=== PATIENT | male | born 2000 | race Caucasian/White ===

== ENCOUNTER 2023-03-24 03:35 | Inpatient (IN) ==
[2023-03-24] MEDS ORDERED: LORazepam 1 MG/1 ML SYR ED Inj Use IV STA (04:28)
[2023-03-24] MEDS ORDERED: MULTI-VITAMIN INFUSION 10 ML, THIAMINE HCL 100 MG, FOLIC ACID 1 MG in SODIUM CHLORIDE 0... IV ONE (04:28)
[2023-03-24 04:42] LABS: Basophils # (auto) 0.04 K/uL (0.00-0.20); Basophils % (auto) 0.5 %; Eosinophils # (auto) 0.08 K/uL (0.00-0.50); Hematocrit (blood only) 46.2 % (42.0-52.0); Hemoglobin 15.8 g/dl (14.0-18.0); Immature Granulocytes # (auto) 0.04 K/uL (0.01-0.20); Immature Granulocytes % (auto) 0.5 %; Lymphocytes # (auto) 1.68 K/uL (1.20-3.40); Lymphocytes % (auto) 21.2 %; Mean Corpuscular Hemoglobin 29.3 pg (25.0-34.0); Mean Corpuscular Hgb Conc 34.2 g/dL (32.0-36.0); Mean Corpuscular Volume 85.7 fL (80.0-100.0); Mean Platelet Volume 10.2 fL (9.4-12.4); Monocytes # (auto) 0.66 K/uL (0.11-0.59); Monocytes % (auto) 8.3 %; Neutrophils # (auto) 5.43 K/uL (1.40-6.50); Neutrophils % (auto) 68.5 %; Platelet Count 237 K/uL (130-400); RDW Coefficient of Variation 12.8 % (11.5-14.5); RDW Standard Deviation 39.7 fL (36.4-46.3); Red Blood Count 5.39 M/uL (4.70-6.10); White Blood Count 7.93 K/ul (4.8-10.8)
[2023-03-24 04:55] LABS: Albumin Globulin Ratio 1.5 (0.9-2); Albumin Level 4.7 gm/dl (3.4-5.0); Bilirubin,Total 1.7 mg/dl (0.2-1.0); Calcium 9.3 mg/dl (8.6-10.3); Creatinine Clr Calc Pharmacy 138.3 ml/min; Est GFR (African American) 137.3 ml/min; Est GFR (Non-African American) 118.5 ml/min; Globulin 3.1 gm/dl (2.5-4.0); Potassium 2.9 mmol/L (3.5-5.1); Total Protein 7.8 gm/dl (6.0-8.3)
[2023-03-24 05:09] LABS: Acetaminophen < 3 ug/ml (10-30); Salicylate < 3.0 mg/dl (3.0-30)
[2023-03-24 05:10] LABS: Thyroid Stimulating Hormone 1.618 uIu/ml (0.300-4.500)
[2023-03-24] MEDS ORDERED: POTASSIUM CHLORIDE / WTR 10 MEQ/100 ML PLCT IV ONE (05:16)
--- NOTE | 2023-03-24 06:09 | Emergency Department Note ---
Impression & Plan Hypokalemia, Alcohol withdrawal, Acute paranoia Admit to the [facility] ED Provider Note NAME: ZACHARY BARNES AGE: 22 SEX: Male INFORMANT: Patient ED PROVIDER(S): Reyna Diaz DO CHIEF COMPLAINT: Racing heart and paranoia PLAN: Disposition: Admit to the [facility] MEDICAL DECISION MAKING: This is a 22-year-old male who presents to the emergency department with a racing heart and acute paranoia. Patient has not been showering over the past 5 days. He describes having very little food to eat over the past 3 days. He has been drinking water. The patient describes drinking alcohol on a daily basis over the past couple of weeks but very heavily over the past 5 to 7 days up until approximately 36 hours ago. Since that time, his racing heart, anxiety and paranoia have worsened. Laboratory studies revealed evidence of significant hypokalemia. The patient required IV potassium replacement. Because what looks to be alcohol withdrawal, the patient was given an IV banana bag. Patient was given a dose of IV Ativan for acute anxiety and paranoia. I discussed the case with the [facility] [place] Divisionist and they will evaluate for further inpatient care. Care/management discussed with: ED psychiatric cyanide case hardener; [facility] Triage Nursing notes: Reviewed and agree with them. 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 Patient describes increased feelings of paranoia and heart racing. Patient has not taken a shower for the past 5 days and has not had very little food eaten in the past 3 days. He initially stated that he was sleeping and woke from sleep after having a terrible nightmare. 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 Patient also describes drinking on a daily basis while at home over holiday break. He thought that he may be withdrawing from alcohol now and lifted up online. PAST MEDICAL HISTORY: None, SOCIAL HISTORY: Student at [employer], drinks alcohol regularly and smokes marijuana HOME MEDICATIONS: None ALLERGIES: None VITALS: See Below PHYSICAL EXAMINATION: HEENT: Head - normocephalic and atraumatic. Pupils are equal, round, and reactive to light. Extraocular eye muscles are intact, and sclera are anicteric. Nose - moist nasal mucosa without discharge. Mouth - moist buccal mucosa. Oropharynx is nonerythematous and there is no tonsillar exudate or edema noted. Neck: Supple; no cervical lymphadenopathy Heart: Tachycardic rate and regular rhythm there is a normal S1 and S2 with no murmurs, clicks, or gallops appreciated. Lungs: Clear to auscultation bilaterally with no wheezes, rales, or rhonchi. Abdomen: Soft, completely nontender, nondistended, with good bowel sounds. There are no palpable pulsatile masses or hepatosplenomegaly. There is no guarding, rigidity, or rebound noted. Extremities: No evidence of cyanosis, clubbing, or edema. There are easily palpable peripheral pulses. Skin: warm and dry with good turgor and no rashes. Psych: Patient appears extremely anxious and acutely paranoid Emergency department treatment: desk monitor; IV banana bag; IV Ativan; IV K rider Emergency department course: Patient was evaluated in room C4. A complete history and physical was performed. An IV lock was initiated and labs were drawn as above. An order was placed for continuous cardiac monitoring. The patient was in a sinus tachycardia at a rate of 126. A twelve-lead EKG was obtained as described above. Patient was given a dose of IV Ativan for his significant anxiety and paranoia. The patient was significantly hypokalemic and an IV K rider was initiated. Patient was evaluated by the ED psychiatric cyanide case hardener and continued to exhibit signs of significant anxiety and paranoia. It is believed he will require additional inpatient psychiatric care for this but because he is hypokalemic and suffering from alcohol withdrawal, he will be admitted medically first. Past Med/Surg History Medical History (Updated 03/25/23 @ 15:26 by Reyna Diaz DO) No significant past medical history Surgical History (Updated 03/24/23 @ 06:39 by Lisa Pozo DO) History of wisdom tooth extraction Family History (Updated 03/24/23 @ 06:39 by Lisa Pozo DO) Other Depression Social History (Updated 03/24/23 @ 06:45 by Lisa Pozo DO) Smoking Status: Current some day smoker Tobacco Type: E-cigarettes / Vaping Hx Alcohol Use: Yes Alcohol type: hard liquor Hx Substance Use: No Preferred Language: Maldivian Communication Ability: Effective Lockstitch Collar Setter Required: No Beliefs That Will Affect Care: None Current Living Situation: Alone Feels Safe at Home: Yes Gender Identity: Male Assistive Devices: None Allergies Allergies Allergy/AdvReac Type Severity Reaction Status Date / Time No Known Drug Allergies Allergy Mild Verified 03/24/23 06:45 Home Meds Home Medications Medication Instructions Recorded Confirmed No Known Home Medications 03/24/23 03/24/23 Results & Data (ED) Vital Signs Vital Signs - 24 hr 03/24/23 03:48 03/24/23 03:48 03/24/23 04:44 Temperature Temperature Source Pulse Rate 108 H 103 H Pulse Rate [Apical] 96 H Respiratory Rate 16 24 Blood Pressure 135/105 H Blood Pressure [Left Arm] 112/86 Blood Pressure Mean 115 Blood Pressure Mean [Left Arm] 94 Pulse Oximetry 99 98 Oxygen Delivery Method Room Air Room Air Sepsis Recent Fever Within 48 Hours No Sepsis New/Unexplained Change in Mental Status No Sepsis Action Taken by Nursing No Action Required 03/24/23 04:45 Temperature 37.1 C Temperature Source Oral Pulse Rate Pulse Rate [Apical] Respiratory Rate Blood Pressure Blood Pressure [Left Arm] Blood Pressure Mean Blood Pressure Mean [Left Arm] Pulse Oximetry Oxygen Delivery Method Sepsis Recent Fever Within 48 Hours Sepsis New/Unexplained Change in Mental Status Sepsis Action Taken by Nursing Laboratory Data 03/25/23 06:01 03/25/23 06:01 Lab Results 03/24/23 03/24/23 03/24/23 Range/Units 03:50 03:50 03:50 WBC 7.93 (4.8-10.8) K/ul RBC 5.39 (4.70-6.10) M/uL Hgb 15.8 (14.0-18.0) g/dl Hct 46.2 (42.0-52.0) % MCV 85.7 (80.0-100.0) fL MCH 29.3 (25.0-34.0) pg MCHC 34.2 (32.0-36.0) g/dL RDW Std Deviation 39.7 (36.4-46.3) fL RDW Coeff of Jet 12.8 (11.5-14.5) % Plt Count 237 (130-400) K/uL MPV 10.2 (9.4-12.4) fL Immature Gran % (Auto) 0.5 % Neut % (Auto) 68.5 % Lymph % (Auto) 21.2 % [place] % (Auto) 8.3 % Eos % (Auto) 1.0 % Baso % (Auto) 0.5 % Neut # (Auto) 5.43 (1.40-6.50) K/uL Lymph # (Auto) 1.68 (1.20-3.40) K/uL [place] # (Auto) 0.66 H (0.11-0.59) K/uL Eos # (Auto) 0.08 (0.00-0.50) K/uL Baso # (Auto) 0.04 (0.00-0.20) K/uL Immature Gran # (Auto) 0.04 (0.01-0.20) K/uL Sodium 135 L (136-145) mmol/L Potassium 2.9 L (3.5-5.1) mmol/L Chloride 98 (98-107) mmol/L Carbon Dioxide 22 (21-32) mmol/L Anion Gap 15 H (3-11) BUN 12 (6-23) mg/dl Creatinine 0.92 (0.6-1.4) mg/dl Est Cr Clr Drug Dosing 138.3 ml/min Est GFR ( Amer) 137.3 ml/min Est GFR (Non-Af Amer) 118.5 ml/min BUN/Creatinine Ratio 13.0 (10-20) Glucose 157 H (70-99(Fasting)) mg/dl Osmolality 286 (280-300) mOsm/kg Calcium 9.3 (8.6-10.3) mg/dl Phosphorus 3.0 Cancelled (2.5-4.9) mg/dl Magnesium 1.9 Cancelled (1.7-2.4) mg/dl Total Bilirubin 1.7 H (0.2-1.0) mg/dl AST 48 H (13-39) U/L ALT 28 (7-52) U/L Alkaline Phosphatase 87 (34-104) U/L Total Protein 7.8 (6.0-8.3) gm/dl Albumin 4.7 (3.4-5.0) gm/dl Globulin 3.1 (2.5-4.0) gm/dl Albumin/Globulin Ratio 1.5 (0.9-2) TSH 1.618 (0.300-4.500) uIu/ml Salicylates < 3.0 L (3.0-30) mg/dl Acetaminophen < 3 L (10-30) ug/ml Ethyl Alcohol mg/dL < 10.0 (<10.0) mg/dl Administered Medications Thiamine HCl 100 mg/ Syringe 10 mls @ 2 m[facility] Stop: 04/23/23 08:59 Last Admin: 03/24/23 09:10 Dose: 2 mls/min Documented By: CARA Folic Acid 1 mg/ Syringe 10 mls @ 5 mls[facility] Stop: 04/23/23 08:59 Last Admin: 03/24/23 09:10 Dose: 5 mls/min Documented By: CARA Lorazepam 1 mg/ Syringe 1 mls @ 2 mls/min IV UD PRN; Protocol PRN Reason: EtOH Withdrawal AWSS Score 6,7 Stop: 04/23/23 08:00 Last Admin: 03/24/23 22:48 Dose: 2 mls/min Documented By: TERI Lorazepam 2 mg/ Syringe 2 mls @ 2 mls/min IV UD PRN; Protocol PRN Reason: EtOH Withdrawal AWSS Score 8,9 Stop: 04/23/23 08:00 Last Admin: 03/24/23 13:19 Dose: 2 mls/min Documented By: VINH Discontinued Medications Chlordiazepoxide HCl (Chlordiazepoxide Hcl 25 Mg Cap) 50 mg PO Q6H [facility] Stop: 03/25/23 02:02 Last Admin: 03/25/23 01:39 Dose: Not Given Documented By: Admin: 03/24/23 21:39 Dose: 50 mg Documented By: Admin: 03/24/23 15:48 Dose: Not Given Documented By: Admin: 03/24/23 09:08 Dose: Not Given Documented By: CARA Multivitamins 10 ml/ Thiamine HCl 100 mg/ Folic Acid 1 mg/Sodium Chloride 1,011.2 mls @ 500 mls/hr IV .Q2H2M ONE Stop: 03/24/23 06:29 Last Infusion: 03/24/23 07:14 Dose: Infused Documented By: Admin: 03/24/23 05:03 Dose: 500 mls/hr Documented By: RENE Potassium Chloride (K Patrcik / Wtr) 10 meq in 100 mls @ 100 mls/hr IV ONE ONE Stop: 03/24/23 06:15 Last Infusion: 03/24/23 06:31 Dose: Infused Documented By: Admin: 03/24/23 05:29 Dose: 100 mls/hr Documented By: RENE Lactated Ringer's (Lr) 1,000 mls @ 125 mls/hr IV .Q8H THUY Stop: 03/25/23 00:00 Last Infusion: 03/25/23 01:33 Dose: Infused Documented By: Admin: 03/24/23 17:13 Dose: 125 mls/hr Documented By: OElder Infusion: 03/24/23 16:25 Dose: Infused Documented By: Admin: 03/24/23 08:25 Dose: 125 mls/hr Documented By: CARA Lorazepam 3 mg/ Syringe 3 mls @ 2 mls/min IV ONCE PRN; Protocol PRN Reason: EtOH Withdrawal AWSS Score 10+ Last Admin: 03/24/23 08:30 Dose: 2 mls/min Documented By: CARA Lorazepam (Lorazepam 1 Mg/1 Ml Syr Ed Inj Use) 1 mg IV ONE STA Stop: 03/24/23 04:29 Last Admin: 03/24/23 04:44 Dose: 1 mg Documented By: RENE Potassium Chloride (Potassium Chloride Crtab 20 Meq Tabcr) 40 meq PO Q2H THUY Stop: 03/24/23 09:06 Last Admin: 03/24/23 07:21 Dose: 40 meq Documented By: CARA Discharge Plan Visit Data Chief Complaint: Anxiety Stated Complaint: Panic Attack ED Provider: Reyna Diaz Discharge Problem: Hypokalemia, Alcohol withdrawal, Acute paranoia Patient Disposition: Admitted As Inpatient Discharge Instructions Interventions: ED Discharge Assessment Last Done: 03/24/23 07:41 Discharge Problem: Alcohol withdrawal Qualifiers: Complication of substance-induced condition: with delirium Qualified Code(s): F 10.931 - Alcohol use, unspecified with withdrawal delirium
[2023-03-24] MEDS ORDERED: Patient's ALLERGY Info needs ENTERED STA (06:27)
--- NOTE | 2023-03-24 06:52 | History & Physical Report ---
Date of Service March 24, 2023 Assessment & Plan (1) Alcohol withdrawal: Plan: Unable to fully quantify how much patient drinks. Concerning for developing DTs with confusion, altered sensorium. Banana bag administered in ER -Admit to PCU -Maintain seizure precautions, fall precautions -Awaiting urine tox screen -Serum osmolality ordered to calculate osmolar gap -Initiate Librium taper -IV Ativan PRN per AWSS protocol -Thiamine 100mg IV daily -Folate 1mg IV daily -LR 125mL/hr 2L -Psychiatry consultation appreciated (2) Hypokalemia: Plan: K=2.9. Likely multifactorial - poor oral intake, recent diarrhea -EKG ordered -Mg level ordered -Has been given 10mEq IV. Will order additional 80mEq PO -Repeat BMP at 12:00 (3) Anxiety: Plan: Patient reports a lot of anxiety and depression symptoms. Has never been diagnosed formally. -Appreciate Psychiatry assistance History of Present Illness Chief Complaint: confusion anxiety Primary Care Provider: [facility] Serafin is a 22yo male presenting with anxiety. Patient is a poor historian at present. He reports that he feels that he has undiagnosed depression and anxiety. He also drinks regularly - daily, admits to at least 3 per day. He has had increase in his alcohol intake over the last several weeks (unable to quantify amount) with very heavy drinking over the past 5-7 days. Also with increase in his anxiety and depression. He reports he has not been eating, showering, sleeping or taking care of himself for the last several days. He also reports that his thoughts are somewhat confused and disorganized. Last drink appx 48 hours ago. States he thinks he is having withdrawal symptoms from alcohol. He reports he has had symptoms of EtOH withdrawal in the past but is unable to clarify when or the severity of his symptoms. He feels like he is "tweaking out" Reports increased fatigue as well as some diarrhea 3 days ago which has since resolved. Is not sure if he has a drinking problem Has never seen Psychiatry before Has never been on any antidepressants or other psychiatric medications In the ER he was noted to be tachycardic and restless. He was given Ativan with some improvement. ER Course: Ativan 1mg IV MVI KCl 10mEq Allergies Allergy/AdvReac Type Severity Reaction Status Date / Time No Known Drug Allergies Allergy Mild Verified 03/24/23 06:45 Past Med/Surg History Medical History (Updated 03/24/23 @ 06:43 by Lisa Pozo DO) No significant past medical history Surgical History (Updated 03/24/23 @ 06:39 by Lisa Pozo DO) History of wisdom tooth extraction Family History (Updated 03/24/23 @ 06:39 by Lisa Pozo DO) Other Depression Social History (Updated 03/24/23 @ 06:45 by Lisa Pozo DO) Smoking Status: Never smoker Hx Alcohol Use: Yes Hx Substance Use: Yes Prescribed Medications: Marijuana Preferred Language: Zimbabwean Feels Safe at Home: Yes Gender Identity: Male Review of Systems Review of Systems: All systems reviewed & are unremarkable except as noted in HPI & below Physical Exam Physical Exam: General: patient restless, oriented to person and location Skin: warm, dry, intact, no rashes or lesions HEENT: NC/AT, PERRL, EOMI, anicteric sclera, conjunctiva without injection, external ear normal to inspection and nontender, nares patent, dry mucus membranes, dentition intact, no oropharyngeal lesions, neck supple, trachea midline, no LAD, no thyromegaly, no JVD Heart: +S1/S2, regular, no m/r/g Lungs: equal air entry bilaterally, no rales/rhonchi/wheezes Abd: +BS, soft, NT/ND, no masses/organomegaly/ascites Ext: warm, 2+ pulses in UE/LE bilaterally, no clubbing/cyanosis or edema Neuro: nonfocal, restless with mild tremor, grossly non-focal exam Results & Data Results & Data Vital Signs (Past 12 Hours) Vital Signs Temp Pulse Pulse Resp BP BP Pulse Ox 03/24/23 06:08 90 16 117/92 97 03/24/23 04:45 37.1 C 03/24/23 04:44 96 H 24 112/86 98 03/24/23 03:48 103 H 16 135/105 H 99 03/24/23 03:48 108 H O2 Del Method 03/24/23 06:08 Room Air 03/24/23 04:45 03/24/23 04:44 Room Air 03/24/23 03:48 Room Air 03/24/23 03:48 Laboratory Results Laboratory Results WBC 7.93 K/ul (4.8-10.8) 03/24/23 03:50 RBC 5.39 M/uL (4.70-6.10) 03/24/23 03:50 Hgb 15.8 g/dl (14.0-18.0) 03/24/23 03:50 Hct 46.2 % (42.0-52.0) 03/24/23 03:50 MCV 85.7 fL (80.0-100.0) 03/24/23 03:50 MCH 29.3 pg (25.0-34.0) 03/24/23 03:50 MCHC 34.2 g/dL (32.0-36.0) 03/24/23 03:50 RDW Std Deviation 39.7 fL (36.4-46.3) 03/24/23 03:50 RDW Coeff of Jet 12.8 % (11.5-14.5) 03/24/23 03:50 Plt Count 237 K/uL (130-400) 03/24/23 03:50 MPV 10.2 fL (9.4-12.4) 03/24/23 03:50 Immature Gran % (Auto) 0.5 % 03/24/23 03:50 Neut % (Auto) 68.5 % 03/24/23 03:50 Lymph % (Auto) 21.2 % 03/24/23 03:50 [place] % (Auto) 8.3 % 03/24/23 03:50 Eos % (Auto) 1.0 % 03/24/23 03:50 Baso % (Auto) 0.5 % 03/24/23 03:50 Neut # (Auto) 5.43 K/uL (1.40-6.50) 03/24/23 03:50 Lymph # (Auto) 1.68 K/uL (1.20-3.40) 03/24/23 03:50 [place] # (Auto) 0.66 K/uL (0.11-0.59) H 03/24/23 03:50 Eos # (Auto) 0.08 K/uL (0.00-0.50) 03/24/23 03:50 Baso # (Auto) 0.04 K/uL (0.00-0.20) 03/24/23 03:50 Immature Gran # (Auto) 0.04 K/uL (0.01-0.20) 03/24/23 03:50 Sodium 135 mmol/L (136-145) L 03/24/23 03:50 Potassium 2.9 mmol/L (3.5-5.1) L 03/24/23 03:50 Chloride 98 mmol/L (98-107) 03/24/23 03:50 Carbon Dioxide 22 mmol/L (21-32) 03/24/23 03:50 Anion Gap 15 (3-11) H 03/24/23 03:50 BUN 12 mg/dl (6-23) 03/24/23 03:50 Creatinine 0.92 mg/dl (0.6-1.4) 03/24/23 03:50 Est Cr Clr Drug Dosing 138.3 ml/min 03/24/23 03:50 Est GFR ( Amer) 137.3 ml/min 03/24/23 03:50 Est GFR (Non-Af Amer) 118.5 ml/min 03/24/23 03:50 BUN/Creatinine Ratio 13.0 (10-20) 03/24/23 03:50 Glucose 157 mg/dl (70-99(Fasting)) H 03/24/23 03:50 Calcium 9.3 mg/dl (8.6-10.3) 03/24/23 03:50 Total Bilirubin 1.7 mg/dl (0.2-1.0) H 03/24/23 03:50 AST 48 U/L (13-39) H 03/24/23 03:50 ALT 28 U/L (7-52) 03/24/23 03:50 Alkaline Phosphatase 87 U/L (34-104) 03/24/23 03:50 Total Protein 7.8 gm/dl (6.0-8.3) 03/24/23 03:50 Albumin 4.7 gm/dl (3.4-5.0) 03/24/23 03:50 Globulin 3.1 gm/dl (2.5-4.0) 03/24/23 03:50 Albumin/Globulin Ratio 1.5 (0.9-2) 03/24/23 03:50 TSH 1.618 uIu/ml (0.300-4.500) 03/24/23 03:50 Salicylates < 3.0 mg/dl (3.0-30) L 03/24/23 03:50 Acetaminophen < 3 ug/ml (10-30) L 03/24/23 03:50 Ethyl Alcohol mg/dL < 10.0 mg/dl (<10.0) 03/24/23 03:50 ECG Additional Comments: Ordered - not yet completed PG Care Time/CCT Total # of Minutes Spent Total Time Spent with Patient: Total time spent is greater than 50% in coordination of care (as documented) at patient's floor/unit and/or counseling patient: Coding Level of Care Code 88482 INT INP/OBS CARE 2/55MIN Diagnoses Alcohol withdrawal F10.931 Complication of substance-induced condition: with delirium Hypokalemia E87.6 Anxiety F41.9 (1) Alcohol withdrawal Complication of substance-induced condition: with delirium Qualified Code(s): F10.931 - Alcohol use, unspecified with withdrawal delirium
[2023-03-24] MEDS ORDERED: POTASSIUM CHLORIDE CRTAB 20 MEQ TABCR PO SCH (07:05)
[2023-03-24] MEDS ORDERED: Ativan IV Alcohol Withdrawal--Active Protocol IV PRN (08:01)
[2023-03-24] MEDS ORDERED: LORazepam 2 MG in SYRINGE 1 ML IV PRN (08:01)
[2023-03-24] MEDS ORDERED: ONDANSETRON INJ 2 MG/ML 2 ML VIAL IV PRN (08:01)
[2023-03-24] MEDS ORDERED: LORazepam 3 MG in SYRINGE 1.5 ML IV PRN (08:01)
[2023-03-24] MEDS ORDERED: chlordiazePOXIDE ALCOHOL WITHDRAWL 50MG PO STA (08:01)
[2023-03-24] MEDS: LACTATED RINGER'S 1,000 ML IV SCH ×2 (08:25→17:13)
[2023-03-24 08:43] LABS: Magnesium 1.9 mg/dl (1.7-2.4)
[2023-03-24] MEDS: chlordiazePOXIDE HCl 25 MG CAP PO SCH ×3 (09:08→21:39)
[2023-03-24] MEDS: THIAMINE HCL 100 MG in SYRINGE 9 ML IV SCH (09:10)
[2023-03-24] MEDS: FOLIC ACID 1 MG in SYRINGE 9.8 ML IV SCH (09:10)
--- NOTE | 2023-03-24 12:04 | Communication Note ---
Date of Service: March 24, 2023 Consult received. Chart reviewed. Attempted to see patient with liaison but he remains too sedated.
[2023-03-24 13:38] LABS: Anion Gap 7 (3-11); BUN Creatinine Ratio 10.4 (10-20); Blood Urea Nitrogen 8 mg/dl (6-23); Calcium 8.8 mg/dl (8.6-10.3); Carbon Dioxide 25 mmol/L (21-32); Chloride 105 mmol/L (98-107); Creatinine Clr Calc Pharmacy 165.3 ml/min; Est GFR (African American) > 150.0 ml/min; Est GFR (Non-African American) 129.7 ml/min; Glucose 104 mg/dl (70-99(Fasting)); Potassium 4.1 mmol/L (3.5-5.1); Sodium 137 mmol/L (136-145)
[2023-03-24 19:38] LABS: Appearance Urine Cloudy (Clear); Bacteria Urine Automated Negative (Negative); Bilirubin Urine Negative (Negative); Blood Urine Negative (Negative); Cast Urine Automated 0 /lpf (0-5); Color Urine Yellow; Epithelial Cell Urine Auto 0-5 /lpf (0-5); Glucose Urine UA Negative (Negative); Ketones Urine Trace (Negative); Leukocyte Esterase Urine Negative (Negative); Nitrite Urine Negative (Negative); Protein Urine Negative (Negative); RBC Urine Automated 0-4 /hpf (0-4); Urobilinogen Urine Negative (Negative)
[2023-03-24 20:07] LABS: Amphetamines+Metham, Urine Neg (Neg); Barbiturates, Urine Neg (Neg); Benzodiazepine, Urine Neg (Neg); Cocaine, Urine Neg (Neg); MDMA (Ecstacy), Urine Neg (Neg); Marijuana, Urine Neg (Neg); Methadone, Urine Neg (Neg); Opiate, Urine Neg (Neg); Phencyclidine, Urine Neg (Neg)
[2023-03-24] MEDS ORDERED: [UNRECOGNIZED DRUG - OTHER] IM ONE (21:00)
[2023-03-24] MEDS: LORazepam 1 MG in SYRINGE 0.5 ML IV PRN (22:48)
[2023-03-25] MEDS: chlordiazePOXIDE HCl 25 MG CAP PO SCH ×3 (01:39→17:55)
[2023-03-25] MEDS: LORazepam 1 MG in SYRINGE 0.5 ML IV PRN ×2 (06:33→23:35)
[2023-03-25 06:45] LABS: Basophils # (auto) 0.03 K/uL (0.00-0.20); Basophils % (auto) 0.5 %; Eosinophils # (auto) 0.12 K/uL (0.00-0.50); Eosinophils % (auto) 2.1 %; Hematocrit (blood only) 45.2 % (42.0-52.0); Hemoglobin 15.1 g/dl (14.0-18.0); Immature Granulocytes # (auto) 0.03 K/uL (0.01-0.20); Immature Granulocytes % (auto) 0.5 %; Lymphocytes # (auto) 2.05 K/uL (1.20-3.40); Lymphocytes % (auto) 35.2 %; Mean Corpuscular Hemoglobin 29.3 pg (25.0-34.0); Mean Corpuscular Hgb Conc 33.4 g/dL (32.0-36.0); Mean Corpuscular Volume 87.6 fL (80.0-100.0); Mean Platelet Volume 9.9 fL (9.4-12.4); Monocytes # (auto) 0.53 K/uL (0.11-0.59); Monocytes % (auto) 9.1 %; Neutrophils # (auto) 3.06 K/uL (1.40-6.50); Neutrophils % (auto) 52.6 %; Platelet Count 202 K/uL (130-400); RDW Coefficient of Variation 13.2 % (11.5-14.5); RDW Standard Deviation 42.6 fL (36.4-46.3); Red Blood Count 5.16 M/uL (4.70-6.10); White Blood Count 5.82 K/ul (4.8-10.8)
[2023-03-25 07:28] LABS: Albumin Globulin Ratio 1.5 (0.9-2); Albumin Level 4.1 gm/dl (3.4-5.0); BUN Creatinine Ratio 10.6 (10-20); Bilirubin Direct 0.2 mg/dl (0-0.2); Bilirubin,Total 1.1 mg/dl (0.2-1.0); Creatinine Clr Calc Pharmacy 148.9 ml/min; Est GFR (African American) 144.4 ml/min; Est GFR (Non-African American) 124.6 ml/min; Globulin 2.7 gm/dl (2.5-4.0); Potassium 3.8 mmol/L (3.5-5.1); Total Protein 6.8 gm/dl (6.0-8.3)
[2023-03-25] MEDS: FOLIC ACID 1 MG in SYRINGE 9.8 ML IV SCH (08:43)
[2023-03-25] MEDS: THIAMINE HCL 100 MG in SYRINGE 9 ML IV SCH (08:49)
--- NOTE | 2023-03-25 11:32 | Communication Note ---
Date of Service: March 25, 2023 attempted to see patient, he is unable to keep eyes open to converse. Discussed with nurse--he has been refusing PO meds, seems paranoid about his IV. No significant tremors. Scoring on AWSS mainly for anxiety. Has not been agitated or attempted to leave. Has denied SI through ED course, etc. There is some questions about possible mood symptoms, racing thoughts/speech. re-reviewed labs, negative for THC but no synthetics pending. still little information re: his baseline alcohol use, liaison has reached out to family for collateral. Certainly presentation consistent with withdrawal delirium but rather unusual presentation for a 22 yo without chronic presentations to ED for intoxication/withdrawal, etc. Possible using to rx symone or first break psychosis (again difficult to delineate in the context of presumed withdrawal). If he should attempt to leave AMA, I'd suggest holding on a 302 warrant for completion of exam/medical clearance.
--- NOTE | 2023-03-25 12:00 | Hospitalist Progress Note ---
Date of Service March 25, 2023 Assessment & Plan (1) Paranoia (psychosis): Plan: Patient exhibiting some signs of paranoia or acute psychosis Has been very teary and states that he thinks his parents will kill him because he has been using up a lot of scant resources for his hospital stays Awaiting psych evaluation Patient is not allowed to leave [place] (2) Alcohol withdrawal: Plan: Unable to fully quantify how much patient drinks. Concerning for developing DTs with confusion, altered sensorium. Banana bag administered in ER -Admit to PCU -Maintain seizure precautions, fall precautions -Awaiting urine tox screen -Serum osmolality ordered to calculate osmolar gap -Initiate Librium taper -IV Ativan PRN per AWSS protocol -Thiamine 100mg IV daily -Folate 1mg IV daily -LR 125mL/hr 2L -Psychiatry consultation appreciated (3) Hypokalemia: Plan: Replace potassium (4) Anxiety: Plan: Patient reports a lot of anxiety and depression symptoms. Has never been diagnosed formally. -Appreciate Psychiatry assistance Plan Continue to monitor in the hospital, patient not allowed to leave AMA Admission and Anticipated Discharge Date Admission Date: March 24, 2023 Subjective Patient seen and examined today, was crying and very teary states that he feels that his parents will kill him because he has been using up a lot of resources for hospital stay. Review of Systems Review of Systems: Unreliable Physical Exam Physical Exam: The patient is awake, alert and oriented 3, very emotional and very teary HEENT--PERRL, EOMI, mucous membranes and oropharynx mildly dry Neck--supple. No JVD. No bruits. Thyroid normal, trachea midline, no adenopathy. Heart--normal S1 and S2. No murmurs, rubs or gallops. Lungs--clear bilaterally, no respiratory distress, no accessory muscle use. Abdomen--normal bowel sounds and soft. Mild epigastric and left sided abdominal pain Extremities--no cyanosis or clubbing. No edema. Dermatologic--normal skin turgor, normal color, no abnormal lymph nodes, no rash. Neurologic--cranial nerves II through XII grossly intact. Rheumatologic--normal range of motion. Psychiatric--depressed Results & Data Results & Data Vital Signs (Past 12 Hours) Vital Signs Temp Pulse Resp BP Pulse Ox O2 Del Method 03/25/23 10:30 98.6 F 86 17 99/69 L 96 Room Air 03/25/23 07:10 98.1 F 81 20 144/73 H 96 Room Air 03/25/23 06:11 98.4 F 77 16 126/89 98 Room Air 03/25/23 04:05 98.4 F 75 18 102/50 L 97 Room Air PG Care Time/CCT Total # of Minutes Spent Total Time Spent with Patient: Total time spent is greater than 50% in coordination of care (as documented) at patient's floor/unit and/or counseling patient: Coding Level of Care Code 30418 SUB INP/OBS CARE 2/35MIN Diagnoses Paranoia (psychosis) F22 Alcohol withdrawal F10.931 Complication of substance-induced condition: with delirium Hypokalemia E87.6 Anxiety F41.9 Time Spent (min) 35 (2) Alcohol withdrawal Complication of substance-induced condition: with delirium Qualified Code(s): F10.931 - Alcohol use, unspecified with withdrawal delirium
[2023-03-26] MEDS: chlordiazePOXIDE HCl 25 MG CAP PO SCH ×3 (02:03→19:01)
[2023-03-26 08:36] LABS: BUN Creatinine Ratio 13.5 (10-20); Calcium 9.3 mg/dl (8.6-10.3); Creatinine Clr Calc Pharmacy 131.9 ml/min; Est GFR (African American) 130.4 ml/min; Est GFR (Non-African American) 112.5 ml/min; Potassium 3.6 mmol/L (3.5-5.1)
[2023-03-26] MEDS: FOLIC ACID 1 MG in SYRINGE 9.8 ML IV SCH (10:33)
[2023-03-26] MEDS: THIAMINE HCL 100 MG in SYRINGE 9 ML IV SCH (10:33)
--- NOTE | 2023-03-26 11:53 | Hospitalist Progress Note ---
Date of Service March 26, 2023 Assessment & Plan (1) Paranoia (psychosis): Plan: Patient exhibiting some signs of paranoia or acute psychosis Has been very teary and states that he thinks his parents will kill him because he has been using up a lot of scant resources for his hospital stays Awaiting psych evaluation Patient is not allowed to leave AMA Patient is medically cleared and medically stable for inpatient psych admission (2) Depression: Plan: Severe anxiety and depression With very depressed affect Awaiting full evaluation by psychiatry Patient is medically cleared and medically stable in case he needs inpatient psych (3) Alcohol withdrawal: Plan: Unable to fully quantify how much patient drinks. Concerning for developing DTs with confusion, altered sensorium. Banana bag administered in ER -Admit to PCU -Maintain seizure precautions, fall precautions -Awaiting urine tox screen -Serum osmolality ordered to calculate osmolar gap -Initiate Librium taper -IV Ativan PRN per AWSS protocol -Thiamine 100mg IV daily -Folate 1mg IV daily -LR 125mL/hr 2L -Psychiatry consultation appreciated Patient has been refusing his medicines and also lab draws (4) Hypokalemia: Plan: Replace potassium (5) Anxiety: Plan: Patient reports a lot of anxiety and depression symptoms. Has never been diagnosed formally. -Appreciate Psychiatry assistance Plan Continue to monitor in the hospital, patient not allowed to leave AMA, he is medically stable and medically cleared for inpatient psych admission Admission and Anticipated Discharge Date Admission Date: March 24, 2023 Subjective Patient seen and examined today, was crying and very depressed Review of Systems Review of Systems: Unreliable Physical Exam Physical Exam: The patient is awake, alert and oriented 3, very emotional and very teary HEENT--PERRL, EOMI, mucous membranes and oropharynx mildly dry Neck--supple. No JVD. No bruits. Thyroid normal, trachea midline, no adenopathy. Heart--normal S1 and S2. No murmurs, rubs or gallops. Lungs--clear bilaterally, no respiratory distress, no accessory muscle use. Abdomen--normal bowel sounds and soft. Mild epigastric and left sided abdominal pain Extremities--no cyanosis or clubbing. No edema. Dermatologic--normal skin turgor, normal color, no abnormal lymph nodes, no rash. Neurologic--cranial nerves II through XII grossly intact. Rheumatologic--normal range of motion. Psychiatric--depressed Results & Data Results & Data Vital Signs (Past 12 Hours) Vital Signs Temp Pulse Resp BP Pulse Ox O2 Del Method 03/26/23 10:48 97.7 F 80 20 111/65 98 Room Air 03/26/23 07:00 98.2 F 70 19 109/60 97 Room Air 03/26/23 03:11 98.6 F 82 21 114/75 97 Room Air 03/26/23 01:28 97.5 F L 86 22 127/81 96 Room Air PG Care Time/CCT Total # of Minutes Spent Total Time Spent with Patient: Total time spent is greater than 50% in coordination of care (as documented) at patient's floor/unit and/or counseling patient: Coding Level of Care Code 18339 SUB INP/OBS CARE 2/35MIN Diagnoses Paranoia (psychosis) F22 Depression F32.A Alcohol withdrawal F10.931 Complication of substance-induced condition: with delirium Hypokalemia E87.6 Anxiety F41.9 Time Spent (min) 35 (3) Alcohol withdrawal Complication of substance-induced condition: with delirium Qualified Code(s): F10.931 - Alcohol use, unspecified with withdrawal delirium
--- NOTE | 2023-03-26 17:29 | Psychiatric Consultation ---
Date of Consultation March 26, 2023 Impression / Recommendations Impression 22 yo male with hx of social anxiety (if not due to other developmental condition) self medicating with ETOH abuse, admit medically for management of presumed withdrawal delirium. His paranoia seems to be resolving, remains somewhat tangential, suspicious but the content of his discussion is more consistent with severe social anxiety with alcohol rather than a fixed delusion, symone, or psychosis. (1) Alcohol withdrawal: Complication of substance-induced condition: with delirium Qualified Code(s): F10.931 - Alcohol use, unspecified with withdrawal delirium (2) Acute paranoia: Plan case reviewed briefly with Dr. Sosa. Offered patient inpatient psychaitric ho spitalization for additional treatment and monitoring when medically cleared. He is adamant that he does not want that he became upset with the idea of his father taking him home instead liaison educated mother re: 302 criteria as [place] mental health law does not allow for commitment for primary substance abuse or treatment, currently his delirium appears to still be resolving reviewed with patient that I would not be starting an antidepressant in the context of acute withdrawal management with no clear aftercare plan and diagnostic uncertainty I'd suggest he remain on 1 on 1 overnight as his MSE waxes and wanes CPT Code Overall, I spent a total of 75 minutes with this case, including review of chart, direct evaluation of the patient, counseling the patient, coordination with nursing,coordination of care with hospitalist service, risk assessment, and documentation. 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 Consult is by hospitalist service for same. Chief Complaint "It was a mistake coming here, wait, is this confidential? I feel like the people at the [facility] are out to get me". 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 Patient reportedly hasn't performed well in college and parents would prefer he withdraw/come home. Patient and parents independently report that he abuses alcohol to manage social anxiety, though was also drinking multiple hard seltzers a day over holiday break in front of parents. He continues to be rather nonspecific re: the volume of beer he was drinking ahead of this hospitalization. He admits to contact the crisis line as he was feeling restless with racing thoughts around the belief that peers were "messing" with him and "I should have just drank some alcohol to slow it down" but he called "not because I was suicidal but I wanted to get picked up." He clarified that his frat brothers/friends are on a group chat and they frequently tease each other by changing their names to famous people. when he asked them to stop, one switched their name to his and continued to send messages. During the course of his hospital stay, the patient has been very labile emotionally either having delayed response or excessively tearful. He has been on 1 on 1 following an episode of making repeated statements about urge to self harm. He denies recollection of this and currently denies SI. He was made aware that father was travelling to [place] to see him in person tomorrow. He continued to have difficulty getting to the point and did ask me to close the door to his room due to concerns he's been overheard. He's been resistant to take PO meds and did make various statements to nursing earlier in stay about poisioning. He denies that thought now and actually fixated on wanting to start Prozac. Past Psychiatric History Current Psychiatric Diagnosis: SAMSON - age 15 History of Previous Suicide Attempt: No Allergies Allergy/AdvReac Type Severity Reaction Status Date / Time No Known Drug Allergies Allergy Mild Verified 03/24/23 06:45 Home Medications Medication Instructions Recorded Confirmed Type No Known Home Medications 03/24/23 03/24/23 History Patient History Medical History No significant past medical history Surgical History History of wisdom tooth extraction Family History (Updated 03/24/23 @ 06:39 by Lisa Pozo DO) Other Depression Social History Smoking Status: Current some day smoker Tobacco Type: E-cigarettes / Vaping Hx Alcohol Use: Yes Alcohol type: hard liquor Hx Substance Use: No Preferred Language: [place] Communication Ability: Effective Women'S Activities Adviser Required: No Beliefs That Will Affect Care: None Current Living Situation: Alone Feels Safe at Home: Yes Gender Identity: Male Assistive Devices: None Physical Exam Psychiatric: Orientation: alert, oriented to person and oriented to place Apperance: appropriately groomed Eye Contact: + fair eye contact Motor Behavior: no abnormal motor movements Speech: normal rate/rhythm/volume of speech Affect: + depressed affect, + anxious affect and + tearful affect Mood: + anxious mood Thought Process: + tangential thought process Thought Content: + paranoid Suicidal Thoughts: denies suicidal thoughts Homicidal Thoughts: denies homicidal thoughts Hallucinations: no auditory hallucinations and no visual hallucinations Cognition: language grossly intact; + attention not intact Estimated Intelligence: consistent with education level Insight: + limited insight Judgment: + limited judgement Vital Signs (Past 24 Hours): Last Vital Signs Temp 36.9 C 03/26/23 15:24 Pulse 79 03/26/23 15:24 Resp 19 03/26/23 15:24 BP 128/83 03/26/23 15:24 Pulse Ox 96 03/26/23 15:24 O2 Del Method Room Air 03/26/23 15:24 Review of Systems All systems reviewed & are unremarkable except as noted in HPI & below Results & Data (PSY) Laboratory Results 03/26/23 Range/Units 07:38 Sodium 140 (136-145) mmol/L Potassium 3.6 (3.5-5.1) mmol/L Chloride 105 (98-107) mmol/L Carbon Dioxide 27 (21-32) mmol/L Anion Gap 8 (3-11) BUN 13 (6-23) mg/dl Creatinine 0.96 (0.6-1.4) mg/dl Est Cr Clr Drug Dosing 131.9 ml/min Est GFR ( Amer) 130.4 ml/min Est GFR (Non-Af Amer) 112.5 ml/min BUN/Creatinine Ratio 13.5 (10-20) Glucose 99 (70-99(Fasting)) mg/dl Calcium 9.3 (8.6-10.3) mg/dl Medications Administered Chlordiazepoxide HCl (Chlordiazepoxide Hcl 25 Mg Cap) 25 mg PO Q8H THUY Stop: 03/27/23 00:46 Last Admin: 03/26/23 10:33 Dose: Not Given Documented By: EP Thiamine HCl 100 mg/ Syringe 10 mls @ 2 mls/min IV QAM THUY Stop: 04/23/23 08:59 Last Admin: 03/26/23 10:33 Dose: Not Given Documented By: Admin: 03/25/23 08:49 Dose: 2 mls/min Documented By: Admin: 03/24/23 09:10 Dose: 2 mls/min Documented By: CARA Folic Acid 1 mg/ Syringe 10 mls @ 5 mls/min IV QAM THUY Stop: 04/23/23 08:59 Last Admin: 03/26/23 10:33 Dose: Not Given Documented By: Admin: 03/25/23 08:43 Dose: 5 mls/min Documented By: Admin: 03/24/23 09:10 Dose: 5 mls/min Documented By: CARA Lorazepam 1 mg/ Syringe 1 mls @ 2 mls/min IV UD PRN; Protocol PRN Reason: EtOH Withdrawal AWSS Score 6,7 Stop: 04/23/23 08:00 Last Admin: 03/25/23 23:35 Dose: 2 mls/min Documented By: Admin: 03/24/23 22:48 Dose: 2 mls/min Documented By: TERI Lorazepam 2 mg/ Syringe 2 mls @ 2 mls/min IV UD PRN; Protocol PRN Reason: EtOH Withdrawal AWSS Score 8,9 Stop: 04/23/23 08:00 Last Admin: 03/24/23 13:19 Dose: 2 mls/min Documented By: VINH Coding Level of Care Code 08867 [facility] Intl Hosp Care Lvl 3 Diagnoses Alcohol withdrawal F10.931 Complication of substance-induced condition: with delirium Acute paranoia F22
--- NOTE | 2023-03-26 21:44 | Electrocardiogram Report ---
Test Reason : Blood Pressure : / mmHG Vent. Rate : 074 BPM Atrial Rate : 074 BPM P-R Int : 138 ms QRS Dur : 094 ms QT Int : 392 ms P-R-T Axes : 060 075 029 degrees QTc Int : 435 ms Normal sinus rhythm Normal ECG No previous ECGs available Confirmed by Mazin Duenas ([id number]) on 03/26/2023 9:44:07 PM Referred By: REFERRED SELF Confirmed By:Mazin Duenas
[2023-03-27] MEDS ORDERED: LORazepam 1 MG in SYRINGE 0.5 ML IV STA (06:23)
[2023-03-27 06:54] LABS: BUN Creatinine Ratio 15.7 (10-20); Calcium 9.3 mg/dl (8.6-10.3); Creatinine Clr Calc Pharmacy 142.3 ml/min; Est GFR (African American) 141.7 ml/min; Est GFR (Non-African American) 122.2 ml/min; Potassium 3.7 mmol/L (3.5-5.1)
[2023-03-27] MEDS: THIAMINE HCL 100 MG in SYRINGE 9 ML IV SCH (08:11)
[2023-03-27] MEDS: FOLIC ACID 1 MG in SYRINGE 9.8 ML IV SCH (08:11)
--- NOTE | 2023-03-27 12:01 | Discharge Summary ---
Date of Service March 27, 2023 Admission HPI Per Admitting Provider Serafin is a 22yo male presenting with anxiety. Patient is a poor historian at present. He reports that he feels that he has undiagnosed depression and anxiety. He also drinks regularly - daily, admits to at least 3 per day. He has had increase in his alcohol intake over the last several weeks (unable to quantify amount) with very heavy drinking over the past 5-7 days. Also with increase in his anxiety and depression. He reports he has not been eating, showering, sleeping or taking care of himself for the last several days. He also reports that his thoughts are somewhat confused and disorganized. Last drink appx 48 hours ago. States he thinks he is having withdrawal symptoms from alcohol. He reports he has had symptoms of EtOH withdrawal in the past but is unable to clarify when or the severity of his symptoms. He feels like he is "tweaking out" Reports increased fatigue as well as some diarrhea 3 days ago which has since resolved. Is not sure if he has a drinking problem Has never seen Psychiatry before Has never been on any antidepressants or other psychiatric medications In the ER he was noted to be tachycardic and restless. He was given Ativan with some improvement. ER Course: Ativan 1mg IV MVI KCl 10mEq Principal Diagnosis anxiety Discharge Exam The patient is awake, alert and oriented 3, very emotional and very teary HEENT--PERRL, EOMI, mucous membranes and oropharynx mildly dry Neck--supple. No JVD. No bruits. Thyroid normal, trachea midline, no adenopathy. Heart--normal S1 and S2. No murmurs, rubs or gallops. Lungs--clear bilaterally, no respiratory distress, no accessory muscle use. Abdomen--normal bowel sounds and soft. Mild epigastric and left sided abdominal pain Extremities--no cyanosis or clubbing. No edema. Dermatologic--normal skin turgor, normal color, no abnormal lymph nodes, no rash. Neurologic--cranial nerves II through XII grossly intact. Rheumatologic--normal range of motion. Psychiatric--depressed Discharge Data Allergies Allergy/AdvReac Type Severity Reaction Status Date / Time No Known Drug Allergies Allergy Mild Verified 03/24/23 06:45 Consultations 03/24/23 05:54 ED Decision to Admit Stat 03/24/23 08:01 Consult Psychiatry Routine Hospital Course (1) Paranoia (psychosis): Patient exhibiting some signs of paranoia or acute psychosis Has been very teary and states that he thinks his parents will kill him because he has been using up a lot of scant resources for his hospital stays Evaluated by psych, he was offered inpatient psych admission Patient is medically cleared and medically stable for inpatient psych admission, however, he declined inpatient psych admission The dad insisted on taking him home he will be discharged (2) Depression: Severe anxiety and depression With very depressed affect Awaiting full evaluation by psychiatry Patient is medically cleared and medically stable in case he needs inpatient psych (3) Alcohol withdrawal: Unable to fully quantify how much patient drinks. Concerning for developing DTs with confusion, altered sensorium. Banana bag administered in ER -Admit to PCU -Maintain seizure precautions, fall precautions -Awaiting urine tox screen -Serum osmolality ordered to calculate osmolar gap -Initiate Librium taper -IV Ativan PRN per AWSS protocol -Thiamine 100mg IV daily -Folate 1mg IV daily -LR 125mL/hr 2L -Psychiatry consultation appreciated Patient has been refusing his medicines and also lab draws (4) Hypokalemia: Replace potassium (5) Anxiety: Patient reports a lot of anxiety and depression symptoms. Has never been diagnosed formally. -Appreciate Psychiatry assistance Plan discharge home, dad insisted on taking him home Total Time Total Time Spent Total Time Spent (In Minutes): 35 Discharge Plan Discharge Items Patient Disposition: Home - Self-Care Reason For Visit: HYPOKALEMIA, ETOH WITHDRAWL Discharge Diagnosis: anxiety, alcohol abuse Activity: Resume your previous activity Non-emergency contact: Primary Care Provider and Psychiatrist Call non-emergency contact if: you have any medication questions Follow-up/Referrals: [facility] [Primary Care Provider] - Diet: Regular Addtl Attending Provider Instructions: please make appointment to follow up with your psychiatrist Pending Studies at Discharge: No Stand-Alone Forms: My [employer], Smoking Cessation Medications and DC Order Prescriptions: No Action No Known Home Medications Discharge Orders: Discharge Order (Routine); Ordered 03/27/23 Ordered By: Marcelo Sosa Admission Data Admit Date/Time: 03/24/23 06:30 Attending Provider: Marcelo Sosa Admit Provider: Lisa Pozo Primary Care Provider: [facility] Other Providers: Lisa Pozo; Shelia Schaefer; Patricia Malin; Magnus [place]; Gil Cavanaugh Coding Level of Care Code 82541 INP/OBS DISCH >30 MIN Diagnoses Paranoia (psychosis) F22 Depression F32.A Alcohol withdrawal F10.931 Complication of substance-induced condition: with delirium Hypokalemia E87.6 Anxiety F41.9 Time Spent (min) 35
--- NOTE | 2023-03-27 13:29 | Communication Note ---
Date of Service: March 27, 2023 interim progress reviewed with liaison, nursing, and Dr. Sosa. Patient has continued to deny SI, was on 1 on 1 based on his shifts in [place] and resolving delirium/paranoia. Although he has severe social anxiety and difficulty expressing himself, he has repeatedly declined inpatient care. He has been unwilling to engage in meaningful dialogue about his aftercare planning that would allow for further discussion of medication trials. It was explained to him by myself yesterday that it is not appropriate to start an SSRI when there was no clear agreement on aftercare. Based on our services communications with parents, they do not support an involuntary commitment and although I do not believe him to be coping well or at his baseline, there is not further criteria for an involuntary hold, particularly given the availability of a parent for support at discharge. The discussions around a possible 302 warrant were to have a possible plan if he attempted to leave as it had been less than 24 hrs since he made suicidal statements while delirious, he was not yet medically cleared, father was in route, etc. I offered to come meet with father but Dr. Sosa informed me the patient was discharged to father at his insistence before I could arrive.
== END 2023-03-27 12:57 | disposition home or self-care (01) | DRG 897 ==
LOC: SUATTDRO → ED 03:35 → EDINP 06:30 → SUATTDRO 06:30 → 2E 07:41 → 3E 03-26 17:36

== ENCOUNTER 2023-04-01 17:35 | Inpatient (IN) ==
--- NOTE | 2023-04-01 18:16 | Emergency Department Note ---
Impression & Plan Anxiety ADMIT ED Provider Note HPI: History obtained from patient. The patient is a 22-year-old male with history of anxiety, depression, paranoia with psychosis, presents emergency department with a chief complaint of anxiety and depression. Patient states that he was assessed today by [facility] through [facility] and was advised to come to the emergency department to be assessed. Patient came voluntarily. Patient states that he was feeling very "worked up" earlier today and was having transient thoughts of wanting to harm himself. Patient states he no longer feels that way but he does feel very depressed and paranoid. Patient states he is having some type of possible hallucinations at night as well when he is trying to sleep, he mentions that he heard a noise the other day and he thought it was a giant rat running through the ace. Patient states he then also had some vivid dreams about a rat. Patient does have some delay in response to my questioning here in the ED, possibly responding to internal stimuli during the interview. Patient states he drinks 2-3 times a week. Denies any illicit drug use. ROS: - Per HPI Differential Diagnosis: Paranoid psychosis, anxiety/depression, bipolar disorder, schizophrenia, amongst other potential pathologies. *Outpatient medications and allergy history reviewed. PE: General: Alert HEENT: Normocephalic, trachea midline Eyes: Extraocular eye movement is intact, no scleral erythema Pulmonary: Clear to auscultation bilaterally, no wheezing Cardio: Regular rate and rhythm GI: Abdomen is soft to palpation : No suprapubic tenderness MSK: No evidence of trauma or malformation of the extremities, no edema Skin: No evidence of rash Neuro: Alert, no focal deficits Psychiatric: Overall cooperative, slight delay when answering questions Interventions provided in ED: -Ativan Medical Decision Making: Lab work was obtained that shows no leukocytosis, hemoglobin is normal, platelet count is normal, CMP does not show any critical findings. Urinalysis does not show any evidence of infection. Patient was medically cleared for case management assessment. Patient was assessed by case management and determined appropriate for 201 admission. Patient signed consent for 201/voluntary admission. Patient was assessed for admission by 3 S. and ultimately accepted for placement for paranoia, elements of psychosis, and anxiety/depression. Patient was transferred to S for further management in stable condition. Consultants/Discussions held with other healthcare providers: -Case Management, Sachi Jackson Disposition discussion held by myself with: -Patient Diagnosis: 1. Anxiety/depression, acute 2. Paranoia with psychotic features, acute 3. 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 Beliefs That Will Affect Care: None Current Living Situation: Alone Feels Safe at Home: Yes Gender Identity: Male Assistive Devices: None Allergies Allergies Allergy/AdvReac Type Severity Reaction Status Date / Time No Known Drug Allergies Allergy Mild Verified 03/24/23 06:45 Home Meds Home Medications Medication Instructions Recorded Confirmed No Known Home Medications 03/24/23 04/01/23 Results & Data (ED) Vital Signs Vital Signs - 24 hr 04/01/23 17:39 04/01/23 21:29 Temperature 36.8 C Temperature Source Temporal Artery Scan Pulse Rate 100 H Pulse Rate [Right Finger] 96 H Pulse Rhythm [Right Finger] Regular Respiratory Rate 20 18 Respiratory Effort / Characteristics Non-Labored Spontaneous Non-Labored Respiratory Depth Normal Normal Respiratory Pattern Regular Regular Blood Pressure 126/66 Blood Pressure [Right Arm] 117/65 Blood Pressure Mean 86 Blood Pressure Mean [Right Arm] 82 Blood Pressure Position [Right Arm] Sitting Pulse Oximetry 94 97 Oxygen Delivery Method Room Air Room Air Sepsis Recent Fever Within 48 Hours No Sepsis New/Unexplained Change in Mental Status No Sepsis Action Taken by Nursing No Action Required Laboratory Data 04/01/23 18:40 04/01/23 18:40 Lab Results 04/01/23 04/01/23 04/02/23 Range/Units 18:08 18:40 00:07 WBC 6.58 (4.8-10.8) K/ul RBC 5.48 (4.70-6.10) M/uL Hgb 16.0 (14.0-18.0) g/dl Hct 47.5 (42.0-52.0) % MCV 86.7 (80.0-100.0) fL MCH 29.2 (25.0-34.0) pg MCHC 33.7 (32.0-36.0) g/dL RDW Std Deviation 40.6 (36.4-46.3) fL RDW Coeff of Jet 13.0 (11.5-14.5) % Plt Count 224 (130-400) K/uL MPV 9.8 (9.4-12.4) fL Immature Gran % (Auto) 0.5 % Neut % (Auto) 59.4 % Lymph % (Auto) 30.1 % [place] % (Auto) 8.2 % Eos % (Auto) 1.2 % Baso % (Auto) 0.6 % Neut # (Auto) 3.91 (1.40-6.50) K/uL Lymph # (Auto) 1.98 (1.20-3.40) K/uL [place] # (Auto) 0.54 (0.11-0.59) K/uL Eos # (Auto) 0.08 (0.00-0.50) K/uL Baso # (Auto) 0.04 (0.00-0.20) K/uL Immature Gran # (Auto) 0.03 (0.01-0.20) K/uL Sodium 137 (136-145) mmol/L Potassium 3.8 (3.5-5.1) mmol/L Chloride 103 (98-107) mmol/L Carbon Dioxide 25 (21-32) mmol/L Anion Gap 9 (3-11) BUN 8 (6-23) mg/dl Creatinine 0.76 (0.6-1.4) mg/dl Est Cr Clr Drug Dosing 178.8 ml/min Est GFR ( Amer) > 150.0 ml/min Est GFR (Non-Af Amer) 130.4 ml/min BUN/Creatinine Ratio 10.5 (10-20) Glucose 86 (70-99(Fasting)) mg/dl Calcium 9.3 (8.6-10.3) mg/dl Total Bilirubin 0.5 (0.2-1.0) mg/dl AST 21 (13-39) U/L ALT 20 (7-52) U/L Alkaline Phosphatase 79 (34-104) U/L Total Protein 7.8 (6.0-8.3) gm/dl Albumin 4.8 (3.4-5.0) gm/dl Globulin 3.0 (2.5-4.0) gm/dl Albumin/Globulin Ratio 1.6 (0.9-2) TSH 0.877 (0.300-4.500) uIu/ml Urine Color Yellow Urine Appearance Cloudy A (Clear) Urine pH 7.0 (4.5-7.5) Ur Specific [place] 1.018 (1.000-1.030) Urine Protein Negative (Negative) Urine Glucose (UA) Negative (Negative) Urine Ketones Trace H (Negative) Urine Blood Negative (Negative) Urine Nitrite Negative (Negative) Urine Bilirubin Negative (Negative) Urine Urobilinogen Negative (Negative) Ur Leukocyte Esterase Negative (Negative) Urine WBC (Auto) 1-5 (0-5) /hpf Urine RBC (Auto) 0-4 (0-4) /hpf U Hyaline Cast (Auto) 0 (0-5) /lpf U Epithel Cells (Auto) 0-5 (0-5) /lpf Urine Bacteria (Auto) Negative (Negative) Salicylates < 3.0 L (3.0-30) mg/dl Urine Opiates Screen Neg (Neg) Ur Methadone, Qual Neg (Neg) Acetaminophen < 3 L (10-30) ug/ml Urine Barbiturates Neg (Neg) Ur Phencyclidine (PCP) Neg (Neg) U Amphetamin/Meth Scrn Neg (Neg) MDMA (Ecstasy) Screen Neg (Neg) U Benzodiazepines Scrn Pos H (Neg) Ur Cocaine Metabolite Neg (Neg) U Marijuana (THC) Screen Neg (Neg) Ethyl Alcohol mg/dL < 10.0 (<10.0) mg/dl SARS-CoV-2, RNA, NAAT NEGATIVE (NEGATIVE) Administered Medications Discontinued Medications Lorazepam (Lorazepam 1 Mg Tab) 1 mg PO NOW STA Stop: 04/01/23 19:43 Last Admin: 04/01/23 19:51 Dose: 1 mg Documented By: KENYON Discharge Plan Visit Data Chief Complaint: Mental Health Evaluation Stated Complaint: MENTAL CRISIS ED Provider: Gil Chu Discharge Problem: Anxiety Forms Stand Alone Forms: [facility], Suicide Prevention Resources Prescriptions Prescriptions: No Action No Known Home Medications Referrals Referrals: [facility] [Primary Care Provider] -
[2023-04-01 18:17] LABS: Appearance Urine Cloudy (Clear); Bacteria Urine Automated Negative (Negative); Bilirubin Urine Negative (Negative); Blood Urine Negative (Negative); Cast Urine Automated 0 /lpf (0-5); Color Urine Yellow; Epithelial Cell Urine Auto 0-5 /lpf (0-5); Glucose Urine UA Negative (Negative); Ketones Urine Trace (Negative); Leukocyte Esterase Urine Negative (Negative); Nitrite Urine Negative (Negative); Protein Urine Negative (Negative); RBC Urine Automated 0-4 /hpf (0-4); Specific Gravity Urine 1.018 (1.000-1.030); Urobilinogen Urine Negative (Negative)
[2023-04-01 19:10] LABS: Basophils # (auto) 0.04 K/uL (0.00-0.20); Basophils % (auto) 0.6 %; Eosinophils # (auto) 0.08 K/uL (0.00-0.50); Eosinophils % (auto) 1.2 %; Hematocrit (blood only) 47.5 % (42.0-52.0); Immature Granulocytes # (auto) 0.03 K/uL (0.01-0.20); Immature Granulocytes % (auto) 0.5 %; Lymphocytes # (auto) 1.98 K/uL (1.20-3.40); Lymphocytes % (auto) 30.1 %; Mean Corpuscular Hemoglobin 29.2 pg (25.0-34.0); Mean Corpuscular Hgb Conc 33.7 g/dL (32.0-36.0); Mean Corpuscular Volume 86.7 fL (80.0-100.0); Mean Platelet Volume 9.8 fL (9.4-12.4); Monocytes # (auto) 0.54 K/uL (0.11-0.59); Monocytes % (auto) 8.2 %; Neutrophils # (auto) 3.91 K/uL (1.40-6.50); Neutrophils % (auto) 59.4 %; Platelet Count 224 K/uL (130-400); RDW Standard Deviation 40.6 fL (36.4-46.3); Red Blood Count 5.48 M/uL (4.70-6.10); White Blood Count 6.58 K/ul (4.8-10.8)
[2023-04-01 19:24] LABS: Amphetamines+Metham, Urine Neg (Neg); Barbiturates, Urine Neg (Neg); Benzodiazepine, Urine Pos (Neg); Cocaine, Urine Neg (Neg); MDMA (Ecstacy), Urine Neg (Neg); Marijuana, Urine Neg (Neg); Methadone, Urine Neg (Neg); Opiate, Urine Neg (Neg); Phencyclidine, Urine Neg (Neg)
[2023-04-01 19:26] LABS: Alanine Aminotransferase 20 U/L (7-52); Albumin Globulin Ratio 1.6 (0.9-2); Albumin Level 4.8 gm/dl (3.4-5.0); Alkaline Phosphatase 79 U/L (34-104); Anion Gap 9 (3-11); Aspartate Aminotransferase 21 U/L (13-39); BUN Creatinine Ratio 10.5 (10-20); Bilirubin,Total 0.5 mg/dl (0.2-1.0); Blood Urea Nitrogen 8 mg/dl (6-23); Calcium 9.3 mg/dl (8.6-10.3); Carbon Dioxide 25 mmol/L (21-32); Chloride 103 mmol/L (98-107); Creatinine Clr Calc Pharmacy 178.8 ml/min; Est GFR (African American) > 150.0 ml/min; Est GFR (Non-African American) 130.4 ml/min; Glucose 86 mg/dl (70-99(Fasting)); Potassium 3.8 mmol/L (3.5-5.1); Sodium 137 mmol/L (136-145); Total Protein 7.8 gm/dl (6.0-8.3)
[2023-04-01 19:28] LABS: Acetaminophen < 3 ug/ml (10-30); Salicylate < 3.0 mg/dl (3.0-30)
[2023-04-01 19:40] LABS: Thyroid Stimulating Hormone 0.877 uIu/ml (0.300-4.500)
[2023-04-01] MEDS ORDERED: LORazepam 1 MG TAB PO STA (19:42)
[2023-04-02] MEDS ORDERED: ACETAMINOPHEN 325 MG TAB PO PRN (03:04)
[2023-04-02] MEDS ORDERED: hydrOXYzine HCl 25 MG TAB PO PRN ×2 (03:04)
[2023-04-02] MEDS ORDERED: MAGNESIUM HYDROXIDE SUSP 30 ML UDC PO PRN (03:04)
[2023-04-02] MEDS ORDERED: BISMUTH SUBSALICYLATE LIQD 236 ML PO PRN (03:04)
[2023-04-02] MEDS ORDERED: ALUMINUM/MAGNESIUM SUSP 30 ML UDC PO PRN (03:04)
[2023-04-02] MEDS ORDERED: SODIUM CHLORIDE 0.65% NA SOLN 45 ML (OCEAN) PRN (03:04)
--- NOTE | 2023-04-02 10:24 | History & Physical ---
Date of Service April 02, 2023 Impression / Recommendations Impression 22 y/o man with a history of social anxiety and alcohol use disorder and recent medical admission for alcohol withdrawal delirium who presented to [facility] with paranoia, and auditory ("music", "giant rats in the ace") hallucinations, and suicidal thoughts, all of which he now denies having said. He is markedly overwhelmed by discussing his recent history or treatment options and insists on leaving right now. I can't tell if he has a primary psychotic disorder or is just so overwhelmed with anxiety that he can't think things through. At this time, he is not psychiatrically stable, and requires psychiatric hospitalization for safety, stabilization, and medication management. I tried to review a trail of sertraline for social anxiety disorder, but pt was unable to tolerate this. I continue to believe this would be a good option for him. For now, will offer lorazepam 1 mg PO and haloperidol 0.5 mg PO. Overall I spent a total of 74 minutes on the floor for this admission including review of chart records, review of test results, direct evaluation of the patient [id number], counseling the patient, reconciling and ordering medication, medication education with the patient, risk assessment, discussion during interdisciplinary treatment rounds, and documentation in the electronic health record. (1) Social anxiety disorder: (2) Paranoia (psychosis): Plan The patient was admitted to the [facility] ([facility] mental health unit) on q15 minute checks (behavioral with suicide precautions) for safety.The patient will participate in group, recreational, and milieu therapies and will be offered additional individual and family sessions as clinically appropriate. * lorazepam 1 mg PO now * haloperidol 0.5 mg PO now * continue to discuss trial of sertraline * pt demanding immediate discharge but refusing to sign a 72-hour request; will need to assess whether to pursue section 302 involuntary commitment Protective Factors Assessment Employed: No Psychiatric History Identifying Data SERAFIN BARNES is a 22-year-old M who currently lives in [place] in an apartment alone, has a history of social anxiety and alcohol use disorder, and was admitted on 04/02/23 01:35 on a 201 voluntary commitment for paranoia and suicidal thoughts. Chief Complaint "[]". History of Present Illness As part of a thorough review of the available medical records, I have read and and incorporated into my assessment the following note by the ED physician: "The patient is a 22-year-old male with history of anxiety, depression, paranoia with psychosis, presents emergency department with a chief complaint of anxiety and depression. Patient states that he was assessed today by [facility] through [facility] and was advised to come to the emergency department to be assessed. Patient came voluntarily. Patient states that he was feeling very "worked up" earlier today and was having transient thoughts of wanting to harm himself. Patient states he no longer feels that way but he does feel very depressed and paranoid. Patient states he is having some type of possible hallucinations at night as well when he is trying to sleep, he mentions that he heard a noise the other day and he thought it was a giant rat running through the ace. Patient states he then also had some vivid dreams about a rat. Patient does have some delay in response to my questioning here in the ED, possibly responding to internal stimuli during the interview. Patient states he drinks 2-3 times a week. Denies any illicit drug use" the following note by the ED psychiatric welfare case worker: "Call from [place] at [facility] prior to patient arrival. Serafin presented to [facility] due to depression, anxiety, and confusion. He is having difficulty being clar, coherent, and very confused along with passive SI. Serafin stated he is very overwhelmed to the extent that he is having difficulty completing his thoughts and sentences. He is unable to clearly articulate his thoughts. He was recently inpatient at [facility] (03/24 - 03/27). He provided conflicting information regarding thoughts of suicide. He stated he was having suicidal thought, then started to back track, and became paranoid that everyone "thought I was crazy for having suicidal thoughts." Serafin stated in ED the "people are judging him." He indicated to [facility] that he "don't trust my thought." Serafin denies any HI or aggression. He report poor sleep and appetite. He denies any legal issues. He stated he consumes alcohol approx. 3 days a week. He denies substance use. 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 He stated he is struggling to concentrate and focus in classes. Serafin stated he has been hearing music and "saw a rat that wasn't there."" and the following note by the psychiatric liaison nurse: "Pt alert and oriented x4 with some intermittent confusion and disorganization. Some irritability throughout admission process but no ag gression. Pt indecisive about inpatient treatment but decided for voluntary treatment after some encouragement and explanation of 201 process. Pt appears paranoid of giving information and signing paperwork for liaison. Pt having trouble developing thoughts and answers. Pt giving inconsistent answers when liaison asking questions. Pt. is a [employer] student (from [place]) with past medical admission with psychiatric consult at [facility] last week. Pt states having a follow up with [facility] and they recommended pt come to the ED. (Note from [facility] on Pt's physical chart). Pt brought to ED by police. Previous notes state pt having passive SI. Also auditory and visual hallucinations. Pt currently denying SI and stating last ideation being last week and same with hallucinations. Pt states feeling depressed. States current stressors involve school, work, and finances. Pt denying previous psychiatric inpatient admissions. Pt denies current outpatient psychiatrist or therapist. Pt states he has only seen [facility]. Pt states seeing a therapist 3rd-5th grade. Pt states his parents thought the therapist would be a good idea in general for him. They later realized it wasn't helping him. Pt denies current prescriptions/medications. Denies medical issues. Pt states getting approx. 4hrs of sleep per night. States having trouble falling asleep and consistent nightmares. Denies tobacco or substance use other than alcohol. Pt states drinking (mostly socially) 2-3 times per week with averaging 1-2 drinks per day. Pt states occasional blackouts while drinking. Pt states moving [facility] of [facility] and in with a few other roommates at [employer]. Pt denies legal issues. ROIs signed for [facility], S, and parents (Bertin and Rylie Barnes). " Review of the medical record reveals a recent medical stay for alcohol withdrawal delirium during which he was seen for consultation on 03/26/[address] Malin, who wrote: Patient with no prior psych hx, though collateral from parents seems to indicate some longstanding social awkwardness/social anxiety since early intervention school psychologist (no official autism dx). Patient reportedly hasn't performed well in college and parents would prefer he withdraw/come home. Patient and parents independently report that he abuses alcohol to manage social anxiety, though was also drinking multiple hard seltzers a day over holiday break in front of parents. He continues to be rather nonspecific re: the volume of beer he was drinking ahead of this hospitalization. He admits to contact the crisis line as he was feeling restless with racing thoughts around the belief that peers were "messing" with him and "I should have just drank some alcohol to slow it down" but he called "not because I was suicidal but I wanted to get picked up." He clarified that his frat brothers/friends are on a group chat and they frequently tease each other by changing their names to famous people. when he asked them to stop, one switched their name to his and continued to send messages. During the course of his hospital stay, the patient has been very labile emotionally either having delayed response or excessively tearful. He has been on 1 on 1 following an episode of making repeated statements about urge to self harm. He denies recollection of this and currently denies SI. He was made aware that father was travelling to [place] to see him in person tomorrow. He continued to have difficulty getting to the point and did ask me to close the door to his room due to concerns he's been overheard. He's been resistant to take PO meds and did make various statements to nursing earlier in stay about poisioning. He denies that thought now and actually fixated on wanting to start Prozac. She thought the presentation was "more consistent with severe social anxiety with alcohol rather than a fixed delusion, symone, or psychosis". Pt. carries diagnosis of social anxiety and alcohol use disorder. Review of pertinent labs reveals they are noncontributory. A urine toxicology screen was positive for metabolites of benzodiazepines. BAL was <10 mg/dL. On interview done along with SW pt disagreed with most of the documented recent history. He denies, for example, that he was hospitalized for alcohol withdrawal last week. He denies having reported any suicidal thoughts at [facility] nor reporting hearing rats in the ace. He also denies using alcohol to quell anxiety. All of these are pretty well-documented by multiple independent clinicians. Over the course of the assessment interview, pt was very distracted by construction outside. He became distressed at fairly basic assessment questions and even more distressed when I began speaking with him about medication. Although pt had said last night that he hoped to start an SSRI for anxiety, and despite telling us that a past trial of sertraline (at unknown dose) was helpful with social anxiety and obsessive thoughts but was stopped because his "father doesn't believe in it", he became overwhelmed when I spoke about aggressively titrating sertraline to a target dose that would not likely work during the time he'd be here. He said that he thought he'd be meeting with a psychiatrist (which, we pointed out, was happening right then), meet with his outpatient therapist outside the hospital, and be given a prescription to take home. He expected to be leaving today with an outpatient prescription. He said he felt as if "people are trying to make [him] crazy" (think in the sense of making him out to be crazy) and that he's "been too honest" in reporting symptoms. He started clawing at his face (leaving no scratches) and grasping his head, gesticulating. It does seem possible that the suicidal thoughts and perceptual disturbances he reported may have been from a week ago, when he was having alcohol withdrawal delirium. When we mentioned that he can request discharge within 72 hours he became even more distressed and said he couldn't possibly stay in the hospital even until tomorrow. Past Psychiatric History Previous Psych History: treated for social anxiety ca. 10 years ago Current Psychiatric Diagnosis: Depression; anxiety Outpatient Services: none Previous Psych Admissions: [facility] medical admission for alcohol withdrawal delirium, seen by psychiatric consultation service History of Previous Suicide Attempt: No Past Medication Trials: sertraline ca. 10 yr ago, helped with social anxiety and obsessive thoughts Allergies Allergy/AdvReac Type Severity Reaction Status Date / Time No Known Drug Allergies Allergy Mild Verified 03/24/23 06:45 Home Medications Medication Instructions Recorded Confirmed Type No Known Home Medications 03/24/23 04/01/23 History Family History Family History of: Doesn't Know Alcohol History Hx of Alcohol Use Over the Past 12 Months: Yes (3x/week. Drank 3 drinks today before being seen at [facility]) AUDIT Total Score: 11 Smoking Use Have You Smoked or Used Tobacco Products in the Last 30 Days: No Smoking Status: Never smoker Substance History Hx of Prescription Med Misuse Over the Past 12 Months: No Hx of Over the Counter Med Misuse Over the Past 12 Months: No Hx of Inhalent Misuse Over the Past 12 Months: No Hx of Organic Substance Use Over the Past 12 Months: No Hx of Illegal Substances/Street Drug Use Over Past 12 Months: No Problems as a Result of Past Substance Use: None Identified Personal History Living Arrangements: Dorm Beliefs That Will Affect Care: None Patient History Medical History (Updated 04/02/23 @ 12:53 by Gil Cavanaugh MD) Social anxiety disorder Alcohol withdrawal Hypokalemia No significant past medical history Surgical History History of wisdom tooth extraction Family History Other Depression Social History Smoking Status: Never smoker Tobacco Type: E-cigarettes / Vaping Hx Alcohol Use: Yes Alcohol type: hard liquor Hx Substance Use: No Preferred Language: Romansh Communication Ability: Effective Card Boxer Required: No Beliefs That Will Affect Care: None Current Living Situation: Alone Feels Safe at Home: Yes Gender Identity: Male Assistive Devices: None Review of Systems Psychiatric: + depression, + abnormal sleep pattern, + anxiety, + panic attacks, + difficulty concentrating and + auditory hallucinations; no suicidal ideation Physical Exam Psychiatric: Orientation: alert, oriented to person, oriented to place and oriented to time; + uncooperative Apperance: appropriately dressed, appropriately groomed and appeared stated age Eye Contact: + poor eye contact Motor Behavior: no abnormal motor movements Speech: normal rate/rhythm/volume of speech Affect: + labile affect Mood: + anxious mood and + irritable mood Thought Process: + thought blocking, + tangential thought process and + concrete thought process; + thought process not linear or logical Thought Content: + paranoid Suicidal Thoughts: denies suicidal thoughts (despite recent reports), denies suicidal plan and denies suicidal intent Homicidal Thoughts: denies homicidal thoughts Hallucinations: + auditory hallucinations (music, giant rats in the ace); no visual hallucinations Cognition: remote memory grossly intact; + recent memory not intact (very poor recall of recent hospitalization) and + attention not intact (very distracted by construction outside) Estimated Intelligence: consistent with education level Insight: + impaired insight Judgment: + impaired judgement Vital Signs (Past 24 Hours): Last Vital Signs Temp 35.9 C L 04/02/23 06:10 Pulse 67 04/02/23 06:11 Resp 16 04/02/23 06:10 BP 124/75 04/02/23 06:11 Pulse Ox 99 04/02/23 03:18 O2 Del Method Room Air 04/02/23 03:18 Exam Statement: A physical exam was performed in the ED for the purposes of medical clearance. I accept that physical as correct and adequate for the purposes of the inpatient physical exam and have incorporated that information into my assessment. Results & Data ([facility]) Laboratory Results Laboratory Results - last 24 hr 04/01/23 04/01/23 04/02/23 18:08 18:40 00:07 WBC 6.58 RBC 5.48 Hgb 16.0 Hct 47.5 MCV 86.7 MCH 29.2 MCHC 33.7 RDW Std Deviation 40.6 RDW Coeff of Jet 13.0 Plt Count 224 MPV 9.8 Immature Gran % (Auto) 0.5 Neut % (Auto) 59.4 Lymph % (Auto) 30.1 Clinch % (Auto) 8.2 Eos % (Auto) 1.2 Baso % (Auto) 0.6 Neut # (Auto) 3.91 Lymph # (Auto) 1.98 Clinch # (Auto) 0.54 Eos # (Auto) 0.08 Baso # (Auto) 0.04 Immature Gran # (Auto) 0.03 Sodium 137 Potassium 3.8 Chloride 103 Carbon Dioxide 25 Anion Gap 9 BUN 8 Creatinine 0.76 Est Cr Clr Drug Dosing 178.8 Est GFR ( Amer) > 150.0 Est GFR (Non-Af Amer) 130.4 BUN/Creatinine Ratio 10.5 Glucose 86 Calcium 9.3 Total Bilirubin 0.5 AST 21 ALT 20 Alkaline Phosphatase 79 Total Protein 7.8 Albumin 4.8 Globulin 3.0 Albumin/Globulin Ratio 1.6 TSH 0.877 Urine Color Yellow Urine Appearance Cloudy A Urine pH 7.0 Ur Specific [place] 1.018 Urine Protein Negative Urine Glucose (UA) Negative Urine Ketones Trace H Urine Blood Negative Urine Nitrite Negative Urine Bilirubin Negative Urine Urobilinogen Negative Ur Leukocyte Esterase Negative Urine WBC (Auto) 1-5 Urine RBC (Auto) 0-4 U Hyaline Cast (Auto) 0 U Epithel Cells (Auto) 0-5 Urine Bacteria (Auto) Negative Salicylates < 3.0 L Urine Opiates Screen Neg Ur Methadone, Qual Neg Acetaminophen < 3 L Urine Barbiturates Neg Ur Phencyclidine (PCP) Neg U Amphetamin/Meth Scrn Neg MDMA (Ecstasy) Screen Neg U OH-Alprazolam Confrm Pending U Benzodiazepines Scrn Pos H 7-Amino Clonazepam Pending Ur Nordiazepam Confirm Pending U OH-ethylflurazepam Pending U Lorazepam Cnf GC/MS Pending U Oxazepam Confm GC/MS Pending Ur Temazepam Confirm Pending U OH-Triazolam Confirm Pending U OH-Midazolam Confirm Pending Ur Cocaine Metabolite Neg U Marijuana (THC) Screen Neg Drug Screen Comment Pending Ethyl Alcohol mg/dL < 10.0 SARS-CoV-2, RNA, NAAT NEGATIVE Current Inpatient Medications Current Inpatient Medications: Current Inpatient Medications Acetaminophen (Acetaminophen 325 Mg Tab) 650 mg PO Q4H PRN PRN Reason: Headache or Minor Fever Stop: 05/02/23 03:03 Al Hydrox/Mg Hydrox/Simethicone (Aluminum/Magnesium Susp 30 Ml Udc) 30 ml PO Q4H PRN PRN Reason: GI Upset Stop: 05/02/23 03:03 Bismuth Subsalicylate (Bismuth Subsalicylate Liqd 236 Ml) 15 ml PO PRN PRN PRN Reason: Loose Stool Stop: 05/02/23 03:03 Hydroxyzine HCl (Hydroxyzine Hcl 25 Mg Tab) 50 mg PO HSZ PRN PRN Reason: Insomnia Stop: 05/02/23 03:03 Hydroxyzine HCl (Hydroxyzine Hcl 25 Mg Tab) 25 mg PO Q4H PRN PRN Reason: Anxiety Stop: 05/02/23 03:03 Magnesium Hydroxide (Magnesium Hydroxide Susp 30 Ml Udc) 30 ml PO DAILY PRN PRN Reason: Constipation Stop: 05/02/23 03:03 Sodium Chloride (Sodium Chloride 0.65% Na Soln 45 Ml ([place])) 1 - 2 sprays NA PRN PRN PRN Reason: Nasal Dryness/Congestion Stop: 05/02/23 03:03
[2023-04-02] MEDS ORDERED: haloperidoL 0.5 MG TAB PO STA (11:55)
[2023-04-02] MEDS ORDERED: LORazepam 1 MG TAB PO STA (11:55)
[2023-04-02] MEDS ORDERED: LORazepam 1 MG TAB ONE (11:55)
[2023-04-02] MEDS ORDERED: haloperidoL 1 MG TAB PO ONE (11:56)
[2023-04-03] MEDS ORDERED: SERTRALINE HCL 50 MG TABLET PO SCH (10:00)
[2023-04-03] MEDS ORDERED: LORazepam 1 MG TAB PO PRN (14:47)
--- NOTE | 2023-04-03 14:53 | Psychiatric Progress Note ---
Date of Service April 03, 2023 Impression / Recommendations Impression 22 y/o man with a history of social anxiety and alcohol use disorder and recent medical admission for alcohol withdrawal delirium who presented to [facility] with paranoia, and auditory ("music", "giant rats in the ace") hallucinations, and suicidal thoughts, all of which he now denies having said. He is markedly overwhelmed by discussing his recent history or treatment options and insists on leaving right now. I can't tell if he has a primary psychotic disorder or is just so overwhelmed with anxiety that he can't think things through. At this time, he is not psychiatrically stable, and requires psychiatric hospitalization for safety, stabilization, and medication management. 04/03/2023: Pt continues to deny suicidal thoughts (or ever having reported any). He remains very easily overwhelmed by any disagreement with his stated goal of leaving immediately and resuming classes. He has difficulty discussing symptoms at all as well as any possible side effects. At any attempt at discussion, he requests discharge right away and when that does not immediately happen he starts pulling his hair, gesticulating, and shouting that we're making him crazy by keeping him here. Such behaviors usually branden immediately when I leave the room, and I often observe him on the unit engaging in typical activities without any evidence of distress. He has shown no evidence of responding to internal stimuli nor has he voiced any persecutory beliefs and since admission has denied any hallucinations (or ever having reported any). Despite his initial presentation with reported persecutory delusions, auditory and visual hallucinations, and suicidal thoughts, this young man present primarily as severely anxious and very intolerant of having his plans or expectations thwarted. During the admission assessment he'd alluded to "the obsessive thoughts" (in the context of reporting they'd improved on sertraline in the past). He hasn't been willing to discuss obsessive thoughts directly, but he does evidence excessive concern about diet and body habitus as well as a focus on returning to classes right away irrespective of any other considerations. He seems ready to make noteworthy statements (e.g., about hearing a giant rat in the ace or having suicidal thoughts) without any sense that others might be concerned by them, just as he seems to have no insight into how his tantrums make others concerned about his ability to maintain appropriate behavior. He is very poorly emotionally regulated (but among other things does not meet age criteria for DMDD). Diagnostically, he seems most likely to have severe generalized anxiety disorder with panic attacks, possibly social anxiety (though he has been spontaneously socializing with peers), very possibly obsessive-compulsive disorder, and extremely poor frustration tolerance and coping skills. Sertraline would be one of several medications appropriate the panic, OCD, and social anxiety symptoms and he'd reported it as having helped in the past. In light of pt's very poor emotional regulation and very limited coping skills, I'm not comfortable discharging him anytime soon except to a parent. They have not shared the concerns of pt's clinical team (including during his recent previous admission when his father saw him in person), and it's possible that he acts more appropriately with them or that the behaviors about which we're concerned are "just how he is". I do see how being made to remain in the hospital is very frustrating for him and given his marked difficulty tolerating frustration there's a good chance that being here is benefitting him little. It is hoped that a parent may be able to come and take him home before his 72-hour request for discharge expires (at which time I would struggle to justify section 302 involuntary emergency psychiatric admission). 04/02/2023: I tried to review a trial of sertraline for social anxiety disorder, but pt was unable to tolerate this. I continue to believe this would be a good option for him. For now, will offer lorazepam 1 mg PO and haloperidol 0.5 mg PO. (1) Social anxiety disorder: (2) SAMSON (generalized anxiety disorder): Plan 04/03/2023: * continue sertraline 50 mg daily, increase to 100 mg tomorrow * lorazepam 1 mg PO TID * lorazepam 1 mg PO Q6H PRN anxiety * risperidone ODT 1 mg SL Q6H PRN symone or psychosis 04/02/2023: The patient was admitted to the [facility] ([facility] mental health unit) on q15 minute checks (behavioral with suicide precautions) for safety.The patient will participate in group, recreational, and milieu therapies and will be offered additional individual and family sessions as clinically appropriate. * lorazepam 1 mg PO now * haloperidol 0.5 mg PO now * continue to discuss trial of sertraline * pt demanding immediate discharge but refusing to sign a 72-hour request; will need to assess whether to pursue section 302 involuntary commitment Inventory Assets Strengths: voluntary, intelligent, attending classes Needs: safety and stabilization, medication adjustment, additional coping skills, increased outpatient services Suicide Risk Level Suicide Risk Level: Moderate (q15 min suicide checks) (denies any current nayeli cidal thoughts) Risk Factors Assessment Male: Yes : Yes Do You Have Access To A Gun?: No Health Problems: No Mental Health Diagnoses: Yes Substance Use Disorders: No Previous Attempt: No Previous Psychiatric Hospitalization: No Hopelessness: No Protective Factors Assessment : No Responsible for Young Children: No Employed: No Supportive Family: Yes Good Rapport with Provider: No Interval History Identifying Information ZACHARY BARNES is a 22-year-old M who currently lives in [place] in an apartment alone, has a history of social anxiety and alcohol use disorder, and was admitted on 04/02/23 01:35 on a 201 voluntary commitment for paranoia and suicidal thoughts. Chief Complaint "I NEED TO GET BACK TO SCHOOL!!". Review of Systems Sleep Information Total Hours of Sleep: 7 Sleep Comments: Pt admitted to unit at 0224 Meal Information Percent Meal Consumed - Breakfast: 100 Percent Meal Consumed - Lunch: 100 Percent Meal Consumed - Dinner: 100 Subjective Subjective The patient was seen and assessed and interval progress reviewed in a multidisciplinary team meeting with the treatment team. For details, see the "Impression" section. Overall I spent a total of 48 minutes for this inpatient follow-up including review of chart records, direct evaluation of the patient [id number], counseling the patient, reconciling and ordering medication, medication education with the patient, risk assessment, discussion during interdisciplinary treatment rounds, and documentation in the electronic health record. Physical Exam Psychiatric Orientation: alert, oriented to person, oriented to place and oriented to time; + uncooperative Apperance: appropriately dressed, appropriately groomed and appeared stated age Eye Contact: + poor eye contact Motor Behavior: no abnormal motor movements Speech: normal rate/rhythm/volume of speech Affect: + labile affect Mood: + anxious mood and + irritable mood Thought Process: + tangential thought process and + concrete thought process; + thought process not linear or logical Thought Content: + paranoid Suicidal Thoughts: denies suicidal thoughts (despite recent reports), denies suicidal plan and denies suicidal intent Homicidal Thoughts: denies homicidal thoughts Hallucinations: no auditory hallucinations and no visual hallucinations Cognition: remote memory grossly intact; + recent memory not intact (very poor recall of recent hospitalization for detox) and + attention not intact (very distracted by construction outside) Estimated Intelligence: consistent with education level Insight: + impaired insight Judgment: + impaired judgement Vital Signs (Past 24 Hours) Last Vital Signs Temp 36.5 C 04/03/23 06:37 Pulse 74 04/03/23 06:38 Resp 16 04/03/23 06:37 BP 113/74 04/03/23 06:38 Pulse Ox 99 04/02/23 03:18 O2 Del Method Room Air 04/02/23 03:18 Results & Data ([facility]) Current Inpatient Medications Current Inpatient Medications: Current Inpatient Medications Acetaminophen (Acetaminophen 325 Mg Tab) 650 mg PO Q4H PRN PRN Reason: Headache or Minor Fever Stop: 05/02/23 03:03 Al Hydrox/Mg Hydrox/Simethicone (Aluminum/Magnesium Susp 30 Ml Udc) 30 ml PO Q4H PRN PRN Reason: GI Upset Stop: 05/02/23 03:03 Bismuth Subsalicylate (Bismuth Subsalicylate Liqd 236 Ml) 15 ml PO PRN PRN PRN Reason: Loose Stool Stop: 05/02/23 03:03 Hydroxyzine HCl (Hydroxyzine Hcl 25 Mg Tab) 50 mg PO HSZ PRN PRN Reason: Insomnia Stop: 05/02/23 03:03 Last Admin: 04/02/23 21:45 Dose: 50 mg Hydroxyzine HCl (Hydroxyzine Hcl 25 Mg Tab) 25 mg PO Q4H PRN PRN Reason: Anxiety Stop: 05/02/23 03:03 Lorazepam (Lorazepam 1 Mg Tab) 1 mg PO Q6H PRN PRN Reason: Anxiety Stop: 05/03/23 14:46 Magnesium Hydroxide (Magnesium Hydroxide Susp 30 Ml Udc) 30 ml PO DAILY PRN PRN Reason: Constipation Stop: 05/02/23 03:03 Risperidone (Risperidone Odt 1mg) 1 mg PO Q6H PRN PRN Reason: symone or psychosis Stop: 05/03/23 14:46 Sertraline HCl (Sertraline Hcl 50 Mg Tablet) 50 mg PO QAM THUY Stop: 05/03/23 09:59 Last Admin: 04/03/23 10:26 Dose: 50 mg Sodium Chloride (Sodium Chloride 0.65% Na Soln 45 Ml ([place])) 1 - 2 sprays NA PRN PRN PRN Reason: Nasal Dryness/Congestion Stop: 05/02/23 03:03 Mental Health & Subst Abuse Tx Therapist Name of Therapist: . Drier Helper Name of Drier Helper: [facility] Phone Number for Drier Helper: [phone] Date of Appointment with Drier Helper: 04/06/23 Time of Appointment with Drier Helper: 10:30am Case Management Appointment Comment: Zoom link will be sent to [facility] email Post Discharge Appointments Primary Care Physician Name Of Family Doctor/PCP: .
[2023-04-03] MEDS: LORazepam 1 MG TAB PO SCH (20:22)
[2023-04-04 00:03] LABS: 7-Aminoclonaz, Confirm NEGATIVE ng/mL (<25); Hydro-Alp Ur, GC/MS NEGATIVE ng/mL (<25); Hydroxyethylflurazepam, Conf NEGATIVE ng/mL (<50); Hydroxymidazolam Ur, GC/MS NEGATIVE ng/mL (<50); Hydroxytriazolam NEGATIVE ng/mL (<50); Lorazepam, Ur GC/MS NEGATIVE ng/mL (<50); Nordiazepam, Confirm NEGATIVE ng/mL (<50); Oxazepam Ur, GC/MS 464 ng/mL (<50); Temazepam, Confirm NEGATIVE ng/mL (<50)
[2023-04-04] MEDS: LORazepam 1 MG TAB PO SCH (08:42)
[2023-04-04] MEDS ORDERED: SERTRALINE HCL 100 MG TABLET PO SCH (09:00)
--- NOTE | 2023-04-04 10:37 | Discharge Summary ---
Date of Service April 04, 2023 History of Present Illness As part of a thorough review of the available medical records, I have read and and incorporated into my assessment the following note by the ED physician: "The patient is a 22-year-old male with history of anxiety, depression, paranoia with psychosis, presents emergency department with a chief complaint of anxiety and depression. Patient states that he was assessed today by [facility] through [facility] and was advised to come to the emergency department to be assessed. Patient came voluntarily. Patient states that he was feeling very "worked up" earlier today and was having transient thoughts of wanting to harm himself. Patient states he no longer feels that way but he does feel very depressed and paranoid. Patient states he is having some type of possible hallucinations at night as well when he is trying to sleep, he mentions that he heard a noise the other day and he thought it was a giant rat running through the ace. Patient states he then also had some vivid dreams about a rat. Patient does have some delay in response to my questioning here in the ED, possibly responding to internal stimuli during the interview. Patient states he drinks 2-3 times a week. Denies any illicit drug use" the following note by the ED psychiatric case coordinator: "Call from [place] at [facility] prior to patient arrival. Serafin presented to [facility] due to depression, anxiety, and confusion. He is having difficulty being clar, coherent, and very confused along with passive SI. Serafin stated he is very overwhelmed to the extent that he is having difficulty completing his thoughts and sentences. He is unable to clearly articulate his thoughts. He was recently inpatient at [facility] (03/24 - 03/27). He provided conflicting information regarding thoughts of suicide. He stated he was having suicidal thought, then started to back track, and became paranoid that everyone "thought I was crazy for having suicidal thoughts." Serafin stated in ED the "people are judging him." He indicated to [facility] that he "don't trust my thought." Serafin denies any HI or aggression. He report poor sleep and appetite. He denies any legal issues. He stated he consumes alcohol approx. 3 days a week. He denies substance use. 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 He stated he is struggling to concentrate and focus in classes. Serafin stated he has been hearing music and "saw a rat that wasn't there."" and the following note by the psychiatric liaison nurse: "Pt alert and oriented x4 with some intermittent confusion and disorganization. Some irritability throughout admission process but no aggression. Pt indecisive about inpatient treatment but decided for voluntary treatment after some encouragement and explanation of 201 process. Pt appears paranoid of giving information and signing paperwork for liaison. Pt having trouble developing thoughts and answers. Pt giving inconsistent answers when liaison asking questions. Pt. is a [employer] student (from [place]) with past medical admission with psychiatric consult at [facility] last week. Pt states having a follow up with [facility] and they recommended pt come to the ED. (Note from [facility] on Pt's physical chart). Pt brought to ED by police. Previous notes state pt having passive SI. Also auditory and visual hallucinations. Pt currently denying SI and stating last ideation being last week and same with hallucinations. Pt states feeling depressed. States current stressors involve school, work, and finances. Pt denying previous psychiatric inpatient admissions. Pt denies current outpatient psychiatrist or therapist. Pt states he has only seen [facility]. Pt states seeing a therapist 3rd-5th grade. Pt states his parents thought the therapist would be a good idea in general for him. They later realized it wasn't helping him. Pt denies current prescriptio ns/medications. Denies medical issues. Pt states getting approx. 4hrs of sleep per night. States having trouble falling asleep and consistent nightmares. Denies tobacco or substance use other than alcohol. Pt states drinking (mostly socially) 2-3 times per week with averaging 1-2 drinks per day. Pt states occasional blackouts while drinking. Pt states moving out of [facility] and in with a few other roommates at [employer]. Pt denies legal issues. ROIs signed for [facility], S, and parents (Bertin and Rylie Haq). " Review of the medical record reveals a recent medical stay for alcohol withdrawal delirium during which he was seen for consultation on 03/26/[address] Malin, who wrote: Patient with no prior psych hx, though collateral from parents seems to indicate some longstanding social awkwardness/social anxiety since [employer] (no official autism dx). Patient reportedly hasn't performed well in college and parents would prefer he withdraw/come home. Patient and parents independently report that he abuses alcohol to manage social anxiety, though was also drinking multiple hard seltzers a day over holiday break in front of parents. He continues to be rather nonspecific re: the volume of beer he was drinking ahead of this hospitalization. He admits to contact the crisis line as he was feeling restless with racing thoughts around the belief that peers were "messing" with him and "I should have just drank some alcohol to slow it down" but he called "not because I was suicidal but I wanted to get picked up." He clarified that his frat brothers/friends are on a group chat and they frequently tease each other by changing their names to famous people. when he asked them to stop, one switched their name to his and continued to send messages. During the course of his hospital stay, the patient has been very labile emotionally either having delayed response or excessively tearful. He has been on 1 on 1 following an episode of making repeated statements about urge to self harm. He denies recollection of this and currently denies SI. He was made aware that father was travelling to [place] to see him in person tomorrow. He continued to have difficulty getting to the point and did ask me to close the door to his room due to concerns he's been overheard. He's been resistant to take PO meds and did make various statements to nursing earlier in stay about poisioning. He denies that thought now and actually fixated on wanting to start Prozac. She thought the presentation was "more consistent with severe social anxiety w ith alcohol rather than a fixed delusion, symone, or psychosis". Pt. carries diagnosis of social anxiety and alcohol use disorder. Review of pertinent labs reveals they are noncontributory. A urine toxicology screen was positive for metabolites of benzodiazepines. BAL was <10 mg/dL. On interview done along with SW pt disagreed with most of the documented recent history. He denies, for example, that he was hospitalized for alcohol withdrawal last week. He denies having reported any suicidal thoughts at [facility] nor reporting hearing rats in the ace. He also denies using alcohol to quell anxiety. All of these are pretty well-documented by multiple independent clinicians. Over the course of the assessment interview, pt was very distracted by construction outside. He became distressed at fairly basic assessment questions and even more distressed when I began speaking with him about medication. Although pt had said last night that he hoped to start an SSRI for anxiety, and despite telling us that a past trial of sertraline (at unknown dose) was helpful with social anxiety and obsessive thoughts but was stopped because his "father doesn't believe in it", he became overwhelmed when I spoke about aggressively titrating sertraline to a target dose that would not likely work during the time he'd be here. He said that he thought he'd be meeting with a psychiatrist (which, we pointed out, was happening right then), meet with his outpatient therapist outside the hospital, and be given a prescription to take home. He expected to be leaving today with an outpatient prescription. He said he felt as if "people are trying to make [him] crazy" (think in the sense of making him out to be crazy) and that he's "been too honest" in reporting symptoms. He started clawing at his face (leaving no scratches) and grasping his head, gesticulating. It does seem possible that the suicidal thoughts and perceptual disturbances he reported may have been from a week ago, when he was having alcohol withdrawal delirium. When we mentioned that he can request discharge within 72 hours he became even more distressed and said he couldn't possibly stay in the hospital even until tomorrow. Physical Exam Psychiatric Orientation: alert, oriented to person, oriented to place and oriented to time; + uncooperative Apperance: appropriately dressed, appropriately groomed and appeared stated age Eye Contact: + poor eye contact Motor Behavior: no abnormal motor movements Speech: normal rate/rhythm/volume of speech Affect: + labile affect Mood: + anxious mood and + irritable mood Thought Process: + thought blocking, + tangential thought process and + concrete thought process; + thought process not linear or logical Thought Content: + paranoid Suicidal Thoughts: denies suicidal thoughts (despite recent reports), denies suicidal plan and denies suicidal intent Homicidal Thoughts: denies homicidal thoughts Hallucinations: no auditory hallucinations and no visual hallucinations Cognition: remote memory grossly intact; + recent memory not intact (very poor recall of recent hospitalization for detox) and + attention not intact (very distracted by construction outside) Estimated Intelligence: consistent with education level Insight: + impaired insight Judgment: + impaired judgement Vital Signs (Past 24 Hours) Last Vital Signs Temp 36.8 C 04/04/23 08:17 Pulse 79 04/04/23 08:17 Resp 16 04/04/23 08:17 BP 124/75 04/04/23 08:17 Pulse Ox 99 04/04/23 08:17 O2 Del Method Room Air 04/02/23 03:18 See admission H&P and DOD assessment. Principal Diagnosis Generalized Anxiety Disorder Psychiatric Data See daily stay summary. In short, safety was maintained and the patient was cooperative with care. Medication changes included initiation of sertraline and titration of sertraline to 100 mg and addition of lorazepam 1 mg TID and they tolerated this well. A family session was held and safety plan was completed prior to discharge. 22 y/o man with a history of social anxiety and alcohol use disorder and recent medical admission for alcohol withdrawal delirium who presented to [facility] with paranoia, and auditory ("music", "giant rats in the ace") hallucinations, and suicidal thoughts, all of which he now denies having said. He is markedly overwhelmed by discussing his recent history or treatment options and insists on leaving right now. I can't tell if he has a primary psychotic disorder or is just so overwhelmed with anxiety that he can't think things through. At this time, he is not psychiatrically stable, and requires psychiatric hospitalization for safety, stabilization, and medication management. 04/03/2023: Pt continues to deny suicidal thoughts (or ever having reported any). He remains very easily overwhelmed by any disagreement with his stated goal of leaving immediately and resuming classes. He has difficulty discussing symptoms at all as well as any possible side effects. At any attempt at discussion, he requests discharge right away and when that does not immediately happen he starts pulling his hair, gesticulating, and shouting that we're making him crazy by keeping him here. Such behaviors usually branden immediately when I leave the room, and I often observe him on the unit engaging in typical activities without any evidence of distress. He has shown no evidence of responding to internal stimuli nor has he voiced any persecutory beliefs and since admission has denied any hallucinations (or ever having reported any). Despite his initial presentation with reported persecutory delusions, auditory and visual hallucinations, and suicidal thoughts, this young man present primarily as severely anxious and very intolerant of having his plans or expectations thwarted. During the admission assessment he'd alluded to "the obsessive thoughts" (in the context of reporting they'd improved on sertraline in the past). He hasn't been willing to discuss obsessive thoughts directly, but he does evidence excessive concern about diet and body habitus as well as a focus on returning to classes right away irrespective of any other considerations. He seems ready to make noteworthy statements (e.g., about hearing a giant rat in the ace or having suicidal thoughts) without any sense that others might be concerned by them, just as he seems to have no insight into how his tantrums make others concerned about his ability to maintain appropriate behavior. He is very poorly emotionally regulated (but among other things does not meet age criteria for DMDD). Diagnostically, he seems most likely to have severe generalized anxiety disorder with panic attacks, possibly social anxiety (though he has been spontaneously socializing with peers), very possibly obsessive-compulsive disorder, and extremely poor frustration tolerance and coping skills. Sertraline would be one of several medications appropriate the panic, OCD, and social anxiety symptoms and he'd reported it as having helped in the past. In light of pt's very poor emotional regulation and very limited coping skills, I'm not comfortable discharging him anytime soon except to a parent. They have not shared the concerns of pt's clinical team (including during his recent previous admission when his father saw him in person), and it's possible that he acts more appropriately with them or that the behaviors about which we're concerned are "just how he is". I do see how being made to remain in the hospital is very frustrating for him and given his marked difficulty tolerating frustration there's a good chance that being here is benefitting him little. It is hoped that a parent may be able to come and take him home before his 72-hour request for discharge expires (at which time I would struggle to justify section 302 involuntary emergency psychiatric admission). 04/02/2023: I tried to review a trial of sertraline for social anxiety disorder, but pt was unable to tolerate this. I continue to believe this would be a good option for him. For now, will offer lorazepam 1 mg PO and haloperidol 0.5 mg PO. Day of Discharge Assessment Today the patient voices readiness for discharge. They note improvement in mood and deny thoughts to harm self or others. Thoughts remain organized and they are improved from admission. There is no evidence of psychosis. They agree to take mediations as prescribed and keep follow-up appointments. They are stable for discharge to outpatient level of care. Overall I spent a total of 33 minutes on the floor for this discharge including review of chart records, review of test results, direct evaluation of the patient [id number], counseling the patient, reconciling and ordering medication, medication education with the patient, risk assessment, discussion during interdisciplinary treatment rounds, and documentation in the electronic health record. Transition of Care Transition Of Care Record: was reviewed with the patient Advance Directives Advance Directives Information Provided: Yes Advance Directives: No Mental Health Advance Directive: No Advance Directives on File: No Living Will: No Power of Mechanic'S Assistant: No Advance Directives Reason:: Declines as Mental Health Visit. Risk Factors Assessment Male: Yes : Yes Do You Have Access To A Gun?: No Health Problems: No Mental Health Diagnoses: Yes Substance Use Disorders: No Previous Attempt: No Previous Psychiatric Hospitalization: No Hopelessness: No Protective Factors Assessment : No Responsible for Young Children: No Employed: No Supportive Family: Yes Good Rapport with Provider: No Tobacco Cessation at Discharge Tobacco Cessation Medication Prescribed at Discharge: Not Applicable/Non-Smoker Total Time Total Time Spent: Greater Than 30 Minutes (33) Total Time Includes: Examination of the patient, Discharge Planning, Medication Reconciliation and As well as (documentation) Discharge Data Lab Results 04/01/23 04/01/23 04/02/23 18:08 18:40 00:07 WBC 6.58 RBC 5.48 Hgb 16.0 Hct 47.5 MCV 86.7 MCH 29.2 MCHC 33.7 RDW Std Deviation 40.6 RDW Coeff of Jet 13.0 Plt Count 224 MPV 9.8 Immature Gran % (Auto) 0.5 Neut % (Auto) 59.4 Lymph % (Auto) 30.1 [place] % (Auto) 8.2 Eos % (Auto) 1.2 Baso % (Auto) 0.6 Neut # (Auto) 3.91 Lymph # (Auto) 1.98 [place] # (Auto) 0.54 Eos # (Auto) 0.08 Baso # (Auto) 0.04 Immature Gran # (Auto) 0.03 Sodium 137 Potassium 3.8 Chloride 103 Carbon Dioxide 25 Anion Gap 9 BUN 8 Creatinine 0.76 Est Cr Clr Drug Dosing 178.8 Est GFR ( Amer) > 150.0 Est GFR (Non-Af Amer) 130.4 BUN/Creatinine Ratio 10.5 Glucose 86 Calcium 9.3 Total Bilirubin 0.5 AST 21 ALT 20 Alkaline Phosphatase 79 Total Protein 7.8 Albumin 4.8 Globulin 3.0 Albumin/Globulin Ratio 1.6 TSH 0.877 Urine Color Yellow Urine Appearance Cloudy A Urine pH 7.0 Ur Specific [place] 1.018 Urine Protein Negative Urine Glucose (UA) Negative Urine Ketones Trace H Urine Blood Negative Urine Nitrite Negative Urine Bilirubin Negative Urine Urobilinogen Negative Ur Leukocyte Esterase Negative Urine WBC (Auto) 1-5 Urine RBC (Auto) 0-4 U Hyaline Cast (Auto) 0 U Epithel Cells (Auto) 0-5 Urine Bacteria (Auto) Negative Salicylates < 3.0 L Urine Opiates Screen Neg Ur Methadone, Qual Neg Acetaminophen < 3 L Urine Barbiturates Neg Ur Phencyclidine (PCP) Neg U Amphetamin/Meth Scrn Neg MDMA (Ecstasy) Screen Neg U OH-Alprazolam Confrm NEGATIVE U Benzodiazepines Scrn Pos H 7-Amino Clonazepam NEGATIVE Ur Nordiazepam Confirm NEGATIVE U OH-ethylflurazepam NEGATIVE U Lorazepam Cnf GC/MS NEGATIVE U Oxazepam Confm GC/MS 464 H Ur Temazepam Confirm NEGATIVE U OH-Triazolam Confirm NEGATIVE U OH-Midazolam Confirm NEGATIVE Ur Cocaine Metabolite Neg U Marijuana (THC) Screen Neg Drug Screen Comment SEE NOTE Ethyl Alcohol mg/dL < 10.0 SARS-CoV-2, RNA, NAAT NEGATIVE Hospital Course (1) Social anxiety disorder: (2) SAMSON (generalized anxiety disorder): Plan 04/03/2023: * continue sertraline 50 mg daily, increase to 100 mg tomorrow * lorazepam 1 mg PO TID * lorazepam 1 mg PO Q6H PRN anxiety * risperidone ODT 1 mg SL Q6H PRN symone or psychosis 04/02/2023: The patient was admitted to the [facility] ([facility] mental health unit) on q15 minute checks (behavioral with suicide precautions) for safety.The patient will participate in group, recreational, and milieu therapies and will be offered additional individual and family sessions as clinically appropriate. * lorazepam 1 mg PO now * haloperidol 0.5 mg PO now * continue to discuss trial of sertraline * pt demanding immediate discharge but refusing to sign a 72-hour request; will need to assess whether to pursue section 302 involuntary commitment Mental Health & Subst Abuse Tx Psychiatrist Psychiatric Appointment Comment: Please establish psychiatric services upon return home. Therapist Name of Therapist: . Occupational Therapist'S Assistant Name of Occupational Therapist'S Assistant: [facility] Phone Number for Occupational Therapist'S Assistant: [phone] Date of Appointment with Occupational Therapist'S Assistant: 04/06/23 Time of Appointment with Occupational Therapist'S Assistant: 10:30am Case Management Appointment Comment: Zoom link will be sent to [facility] email Post Discharge Appointments Primary Care Physician Name Of Family Doctor/PCP: . Provider Appointment Comment: Please follow-up with your primary care doctor upon return home. Smoking Cessation Counseling Tobacco Cessation Medication Prescribed at Discharge: Not Applicable/Non-Smoker Contact Information Discharge Discharge Address: [facility] [address] [address] Discharge Plan Discharge Items Patient Disposition: Home - Self-Care Reason For Visit: PSYCHOSIS NOS Discharge Diagnosis: Generalized Anxiety Disorder Activity: Resume your previous activity Non-emergency contact: Primary Care Provider and Psychiatrist Call non-emergency contact if: you have any medication questions Follow-up/Referrals: [facility] [Primary Care Provider] - Diet: Regular Addtl Attending Provider Instructions: SPECIAL CARE INSTRUCTIONS: 1. Follow through with your scheduled aftercare appointments. If unable to keep an appointment, please call to reschedule. 2. Take your medication only as prescribed. Medication should not be changed or stopped without the approval of your doctor. In the event of worsening symptoms or concerns about side effects, contact your doctor immediately. 3. Utilize new healthy coping skills, anger management skills, and stress management skills learned during your hospitalization. Journal feelings and process them with a support person. Identify stressors or situations that may result in relapse, deterioration or inappropriate behaviors and develop a plan to deal with those issues. 4. If your coping skills are ineffective and you are in crisis, contact your outpatient providers for direction. If unable to reach your providers, please call the [facility] CRISIS LINE AT , go to the [facility] walk-in center at [address], [address], [place], or go to the closest Emergency Room. 5. Avoid alcohol and un-prescribed drugs. 6. You have been provided with the Mental Health Advance Directives Pamphlet for your review. 7. Your condition is stable for discharge to outpatient level of care, but recovery is an ongoing process. Ifthoughts to harm yourself or others return, follow the safety plan developed during your stay. Planning for a safe return home includes securing weapons. Our treatment team recommends weaponsbe removed from the home until your outpatient provider reassesses your progress. In rare cases where the items themselvescannot be removed, guns and ammunitionshould be secured separatelyand keys stored by a reliable personoutside of the home. If you were admitted on an involuntary commitment, the police or other legal authorities may be involved in this process. AFTERCARE APPOINTMENTS: * Please call your insurance company prior to your scheduled appointment to confirm your aftercare providers are covered. Take your insurance information to your appointments. WHO TO CALL AND WHEN: Medical Emergencies: For questions or emergencies related to your hospital stay, please contact the Inpatient Behavioral Health Unit at [phone]. A vulcanizer operator is on-call 29/09 for the Behavioral Health Unit for emergencies At any time you feel your situation is an emergency, you may also call 911 immediately. Pending Studies at Discharge: No Stand-Alone Forms: [facility], Smoking Cessation Medications and DC Order Prescriptions: New lorazepam 1 mg Tablet 1 mg PO TID 30 Days Qty: 90 0RF sertraline 100 mg Tablet 100 mg PO QAM 30 Days Qty: 30 0RF Discharge Orders: Discharge Order (Routine); Ordered 04/04/23 Ordered By: Gil Cavanaugh Admission Data Admit Date/Time: 04/02/23 01:35 Attending Provider: Gil Cavanaugh Admit Provider: Gil Cavanaugh Primary Care Provider: [facility] Other Interventions: Discharge Summary Assessment (RN) Last Done: 04/04/23 08:17 PSY Interdisciplinary Discharge Planning Last Done: 04/04/23 08:22 Coding Level of Care Code 38634 D/C day mgmt > 30 min Diagnoses Social anxiety disorder F40.10 SAMSON (generalized anxiety disorder) F41.1 Time Spent (min) 33
== END 2023-04-04 11:45 | disposition home or self-care (01) | DRG 880 ==
LOC: ED 17:35 → 3S 04-02 01:35